=== PATIENT | male | born 1945 | race Caucasian/White ===

== ENCOUNTER → 2017-10-08 | Outpatient (CLI) | payer OTHER ==
[~2017-10-08] MED LIST: LEXA5TAB; LOVA1TAB47; PROT40TA PO; REST15CA; TEMA30CA PO; TIZA4CAP3 PO; TRAM50TA PO; TRAZ100T10 PO; TRAZ100T50
--- NOTE | 2017-10-09 09:05 | RSPPFT ---
DATE OF PROCEDURE: 10/08/17 COMMENTS: VOLUMES DYNAMIC: FVC mildly reduced; FEV1 severely reduced. STATIC: FRC, RV moderately increased, TLC normal. FLOWS: FEV1% and FEF 25-75 severely reduced. DIFFUSION: Severely reduced. FLOW VOLUME LOOP: Pattern of variable intrathoracic airways obstruction. IMPRESSION: Severe obstructive ventilatory defect with reduction in diffusion and hyperinflation consistent with emphysema. Airways resistance is increased. There is significant improvement post-bronchodilator.
== END ==
LOC: PHRSP 10:25
PROVIDERS: ATTEND Internal Medicine
DX: J44.9 Chronic obstructive pulmonary disease, unspecified (principal)
CPT/HCPCS: 94060; 94620; 94726; 94729

== ENCOUNTER 2017-10-30 14:36 | Inpatient (IN) | payer OTHER, MEDICARE ==
[2017-10-30] VITALS (7 sets, daily range): BP systolic 119–139; BP diastolic 66–76; PULSE 69–78; RESP 16–20; TEMP 97.7–97.9; O2SAT 92–96
[~2017-10-30] VITALS: Ht 182.9 cm; Wt 62.2 kg
[~2017-10-30 14:36] MED LIST changes: -PROT40TA PO; -TEMA30CA PO; -TIZA4CAP3 PO; -TRAM50TA PO; -TRAZ100T10 PO
[2017-10-30] MEDS ORDERED: PROT40TA PO (15:17)
[2017-10-30] MEDS ORDERED: TRAZ100T10 PO (15:17)
[2017-10-30] MEDS ORDERED: TRAM50TA PO (15:17)
[2017-10-30] MEDS ORDERED: TEMA30CA PO (15:17)
[2017-10-30] MEDS ORDERED: TIZA4CAP3 PO (15:17)
--- NOTE | 2017-10-30 15:28 | PD ---
HPI Chief Complaint: Pain: Acute or Chronic Time Seen by Provider: 15:12 Travel History International Travel<30 days: No Contact w/Intl Traveler<30days: No Traveled to known affect area: No History of Present Illness HPI This 72-year-old male says he has not felt well since around . He says he went to his doctor's office and got a pneumonia shot. After the shot he started feeling as though his ribs were being squeezed. He had persistent chest pain. He says the pain has now moved to his back and he has ongoing active pain as well as chest pain. He says he had a chest x-ray last Sunday at [facility] though I have not been able to find this report. He has been a smoker in the past. In 2009 he had laparoscopic removal of his esophagus. He has gone for follow-up and has been told that he is cancer free. Recently he has not had an appetite. He has had weight loss. He has pain with any movements. He has trouble getting comfortable. He is not aware of fever. He did have a CT of the thorax with contrast on September 06 which showed a pulmonary nodule mild nodular infiltrate in the posterior right lower lung most likely inflammatory PFSH Past Medical History Bipolar Disorder: Yes (BEING TX x15 YEARS) Depression: Yes (BEING TX OF DEPRESSION x15 YEARS) Cancer: Yes Diminished Hearing: No GERD: Yes Musculoskeletal: Yes (CHRONIC BACK PAIN) Immunizations Current: Yes Tetanus Vaccination: < 5 Years Influenza Vaccination: Yes Past Surgical History Appendectomy: Yes Other Surgery: Yes (PARTIAL REMOVAL OF ESOPHIGOUS/STOMACH) Social History Alcohol Use: Yes (SOCIAL) Tobacco Use: No (FORMER) Substance Use: No Allergies-Medications (Allergen,Severity, Reaction): Coded Allergies: No Known Allergies (Verified Allergy, Unknown, 10/30/17) Reported Meds & Prescriptions Reported Meds & Active Scripts Active Reported Protonix (Pantoprazole Sodium) 40 Mg Tab 40 Mg PO DAILY Trazodone (Trazodone HCl) 100 Mg Tablet 200 Mg PO HS Tizanidine (Tizanidine HCl) 4 Mg Cap 4 Mg PO HS Tramadol (Tramadol HCl) 50 Mg Tab 50 Mg PO Q6H PRN Temazepam 30 Mg Cap 30 Mg PO HS PRN Review of Systems General / Constitutional: Positive: Weight Loss, No: Fever, Chills Eyes: No: Diploplia HENT: No: Headaches, Vertigo Cardiovascular: Positive: Chest Pain or Discomfort, No: Palpitations Respiratory: No: Cough, Shortness of Breath Gastrointestinal: Positive: Loss of Appetite, No: Vomiting, Diarrhea Genitourinary: No: Frequency Musculoskeletal: No: Myalgias Skin: No Rash Neurologic: Positive: Weakness, No: Dizziness Endocrine: No: Heat Intolerance, Cold Intolerance Hematologic/Lymphatic: No: Easy Bruising Physical Exam Narrative GENERAL: Chronically ill-appearing male is quite thin SKIN: Focused skin assessment warm/dry. HEAD: Atraumatic. Normocephalic. EYES: Pupils equal and round. No scleral icterus. No injection or drainage. ENT: No nasal bleeding or discharge. Mucous membranes pink and moist. NECK: Trachea midline. No JVD. CARDIOVASCULAR: Regular rate and rhythm. No murmur appreciated. RESPIRATORY: No accessory muscle use. Clear to auscultation. Breath sounds equal bilaterally. He has bilateral chest wall tenderness GASTROINTESTINAL: Abdomen soft, non-tender, nondistended. Hepatic and splenic margins not palpable. MUSCULOSKELETAL: No obvious deformities. No clubbing. No cyanosis. No edema. He has tenderness in the low back. NEUROLOGICAL: Awake and alert. No obvious cranial nerve deficits. Motor grossly within normal limits. Normal speech. PSYCHIATRIC: Appropriate mood and affect; insight and judgment normal. Data Data Last Documented VS Vital Signs Date Time Temp Pulse Resp B/P (MAP) Pulse Ox O2 Delivery O2 Flow Rate FiO2 10/30/17 18:05 72 18 139/73 (95) 93 Room Air 10/30/17 14:59 97.7 Orders Orders Electrocardiogram (10/30/17 15:25) Complete Blood Count With Diff (10/30/17 15:25) Comprehensive Metabolic Panel (10/30/17 15:25) Prothrombin Time / Inr (Pt) (10/30/17 15:25) Act Partial Throm Time (Ptt) (10/30/17 15:25) Urinalysis - C+S If Indicated (10/30/17 15:25) Magnesium (Mg) (10/30/17 15:25) Chest, Single Ap (10/30/17 15:25) Sodium Chlor 0.9% 1000 Ml Inj (Ns 1000 M (10/30/17 15:45) Ct Thorax/ Chest W Iv Contrast (10/30/17 15:39) Ct Abd/Pel W Iv Contrast(Rout) (10/30/17 ) Ct Lumb Spine W Iv Contrast (10/30/17 ) Iohexol 350 Inj (Omnipaque 350 Inj) (10/30/17 16:48) Morphine Inj (Morphine Inj) (10/30/17 18:00) Admit Order (Ed Use Only) (10/30/17 18:42) Labs Laboratory Tests Test 10/30/17 15:30 10/30/17 16:15 White Blood Count 14.0 TH/MM3 Red Blood Count 3.65 MIL/MM3 Hemoglobin 10.2 GM/DL Hematocrit 31.1 % Mean Corpuscular Volume 85.1 FL Mean Corpuscular Hemoglobin 28.1 PG Mean Corpuscular Hemoglobin Concent 33.0 % Red Cell Distribution Width 12.8 % Platelet Count 120 TH/MM3 Mean Platelet Volume 8.6 FL Neutrophils (%) (Auto) 79.8 % Lymphocytes (%) (Auto) 11.5 % Monocytes (%) (Auto) 6.3 % Eosinophils (%) (Auto) 1.9 % Basophils (%) (Auto) 0.5 % Neutrophils # (Auto) 11.1 TH/MM3 Lymphocytes # (Auto) 1.6 TH/MM3 Monocytes # (Auto) 0.9 TH/MM3 Eosinophils # (Auto) 0.3 TH/MM3 Basophils # (Auto) 0.1 TH/MM3 CBC Comment DIFF FINAL Differential Comment Prothrombin Time 16.6 SEC Prothromb Time International Ratio 1.6 RATIO Activated Partial Thromboplast Time 30.1 SEC Blood Urea Nitrogen 12 MG/DL Creatinine 1.10 MG/DL Random Glucose 118 MG/DL Total Protein 5.6 GM/DL Albumin 2.6 GM/DL Calcium Level 8.9 MG/DL Magnesium Level 1.7 MG/DL Alkaline Phosphatase 977 U/L Aspartate Amino Transf (AST/SGOT) 67 U/L Alanine Aminotransferase (ALT/SGPT) 24 U/L Total Bilirubin 0.4 MG/DL Sodium Level 139 MEQ/L Potassium Level 3.8 MEQ/L Chloride Level 99 MEQ/L Carbon Dioxide Level 34.3 MEQ/L Anion Gap 6 MEQ/L Estimat Glomerular Filtration Rate 66 ML/MIN Urine Collection Type CLEAN CATCH Urine Color YELLOW Urine Turbidity CLEAR Urine pH 5.5 Urine Specific Leigh 1.013 Urine Protein NEG mg/dL Urine Glucose (UA) NEG mg/dL Urine Ketones NEG mg/dL Urine Occult Blood NEG Urine Nitrite NEG Urine Bilirubin NEG Urine Leukocyte Esterase NEG Urine WBC 0-2 /hpf Urine Squamous Epithelial Cells 0-5 /hpf Microscopic Urinalysis Comment CULT NOT INDICATED Urine Collection Time 16:15 [facility] Medical Decision Making Medical Screen Exam Complete: Yes Emergency Medical Condition: Yes Medical Record Reviewed: Yes Differential Diagnosis Differential includes musculoskeletal pain, recurrent esophageal carcinoma, lung cancer Narrative Course Patient has not been eating well. I have ordered lab work as well as CT scan of chest abdomen and pelvis and lumbar spine and very suspicious of metastatic disease. Disposition will be determined by oncoming physician Jaciel Saleem MD Oct 30, 2017 15:28
[2017-10-30] MEDS ORDERED: SODIUM CHLOR 0.9% 1000 ML INJ 1,000 ML IV ONE (15:45)
[2017-10-30 15:53] LABS: AUTOMATED NEUTROPHIL # 11.1 TH/MM3 (1.8-7.7); BASOPHIL # 0.1 TH/MM3 (0-0.2); BASOPHIL % 0.5 % (0.0-2.0); EOSINOPHIL # 0.3 TH/MM3 (0-0.4); EOSINOPHIL % 1.9 % (0.0-4.0); HEMATOCRIT 31.1 % (39.0-51.0); HEMOGLOBIN 10.2 GM/DL (13.0-17.0); LYMPH % 11.5 % (9.0-44.0); LYMPHOCYTE # 1.6 TH/MM3 (1.0-4.8); MEAN CELL VOLUME 85.1 FL (80.0-100.0); MEAN CORPUSCULAR HEMOGLOBIN 28.1 PG (27.0-34.0); MEAN PLATELET VOLUME 8.6 FL (7.0-11.0); MONO % 6.3 % (0.0-8.0); MONOCYTE # 0.9 TH/MM3 (0-0.9); NEUT % 79.8 % (16.0-70.0); PLATELET COUNT 120 TH/MM3 (150-450); RED BLOOD COUNT 3.65 MIL/MM3 (4.50-5.90); RED CELL DISTRIBUTION WIDTH 12.8 % (11.6-17.2)
[2017-10-30 16:04] LABS: CHLORIDE 99 MEQ/L (98-107); SODIUM (NA) 139 MEQ/L (136-145)
[2017-10-30 16:06] LABS: INTERNATIONAL NORMALIZED RATIO 1.6 RATIO; PROTHROMBIN TIME - PATIENT 16.6 SEC (9.8-11.6)
[2017-10-30 16:08] LABS: ALBUMIN 2.6 GM/DL (3.4-5.0); BICARBONATE 34.3 MEQ/L (21.0-32.0); CALCIUM 8.9 MG/DL (8.5-10.1); GLUCOSE,RANDOM 118 MG/DL (74-106); MAGNESIUM 1.7 MG/DL (1.5-2.5)
[2017-10-30 16:09] LABS: BLOOD UREA NITROGEN 12 MG/DL (7-18)
[2017-10-30 16:11] LABS: ALT (GPT) 24 U/L (12-78); AST (GOT) 67 U/L (15-37)
[2017-10-30 16:12] LABS: GLOMERULAR FILTRATION RATE 66 ML/MIN (>89)
[2017-10-30 16:13] LABS: TOTAL BILIRUBIN ADULT 0.4 MG/DL (0.2-1.0); TOTAL PROTEIN 5.6 GM/DL (6.4-8.2)
[2017-10-30 16:14] LABS: ALKALINE PHOSPHATASE 977 U/L (45-117)
[2017-10-30 16:34] LABS: BILIRUBIN, URINE NEG (NEG); BLOOD, URINE NEG (NEG); GLUCOSE,URINE NEG (NEG); KETONE, URINE NEG (NEG); NITRITE,URINE NEG (NEG); PH, URINE 5.5 (5.0-8.5); URINE LEUKOCYTE ESTERASE NEG (NEG)
[2017-10-30] MEDS ORDERED: IOHEXOL 350 MG/ML 10 ML VIAL (for RAD DIAG) IVCONTRAST ONE (16:48)
[2017-10-30 16:58] LABS: URINE COLOR YELLOW (YELLW/STRAW)
[2017-10-30 16:59] LABS: SQUAMOUS EPITHELIAL CELL URINE 0-5 /hpf (0-5); WBC, URINE 0-2 /hpf (0-5)
--- NOTE | 2017-10-30 17:08 | RADRPT ---
EXAM DATE/TIME: 10/30/2017 16:34 CORRECTION Corrected on: October 30, 2017; [facility] COMPARISON: CT ABDOMEN & PELVIS W CONTRAST, October 30, 2017, 16:34. INDICATIONS : Chest pain. Evaluate for mass. history of esophageal cancer. IV CONTRAST: 95 cc Omnipaque 350 (iohexol) IV ; Cumulative dose for multiple exams. RADIATION DOSE: 9.78 CTDIvol (mGy) ; Combined studies - Thorax/Abdomen/Pelvis MEDICAL HISTORY : Carcinoma, esophageal. Gastroesophageal reflux disease. SURGICAL HISTORY : Appendectomy. Partial removal of esophagus/stomach. ENCOUNTER: Initial ACUITY: 1 day PAIN SCALE: 6/10 LOCATION: chest TECHNIQUE: Volumetric scanning of the chest was performed. Using automated exposure control and adjustment of t he mA and/or kV according to patient size, radiation dose was kept as low as reasonably achievable to obtain optimal diagnostic quality images. DICOM format image data is available electronically for review and comparison. Follow-up recommendations for detected pulmonary nodules are based at a minimum on nodule size and pa tient risk factors according to Fleischner Society Guidelines. LUNGS: There is no consolidation or pneumothorax. The lungs are hyperinflated with underlying emphysema. The re is mild scarring. No concerning pulmonary nodule is visualized. PLEURA: There is a small left pleural effusion. MEDIASTINUM: The heart and great vessels demonstrate no acute abnormality. There is no mediastinal or hilar lymph adenopathy. Status post esophagectomy and gastric pull-through procedure. There is no visualized mass . Fluid is noted in the stomach. There is a small to moderate pericardial effusion AXILLAE: Within normal limits. No lymphadenopathy. SKELETAL: There are subtle scattered lucent lesions throughout the spine consistent with metastatic disease. Th ere is an expansile lesion volving one of the upper left thoracic pedicles. This appears to be T3. Th ere is mass effect on the left side of the thecal sac at this level. MISCELLANEOUS: There is a 1 cm low attenuation lesion in the anterior left lobe of the liver. The adrenal glands are unremarkable. CONCLUSION: 1. Osseous metastatic disease. This includes an expansile lesion involving what appears to be the lef t T3 lamina with mass effect on the left side of the thecal sac. 2. Small to moderate sized pericardial effusion. 3. Status post esophagectomy with gastric pull-through procedure. There is no visualized mass or alicia opathy. 4. Underlying emphysema and mild scarring. 5. Small left pleural effusion. 6. Low attenuation lesion in the anterior left lobe of liver which is a nonspecific finding. Please s ee abdomen CT for further details. Chente Stone MD on October 30, 2017 at 17:02 Board Certified Radiologist. This report was verified electronically. Chente Stone MD on October 30, 2017 at 17:18 Board Certified Radiologist. This report was verified electronically.
--- NOTE | 2017-10-30 17:16 | RADRPT ---
EXAM DATE/TIME: 10/30/2017 16:34 [facility] COMPARISON: CT THORAX W CONTRAST, October 30, 2017, 16:34. INDICATIONS : Evaluate for mass. History of esophageal cancer. IV CONTRAST: 95 cc Omnipaque 350 (iohexol) IV ; Cumulative dose for multiple exams. ORAL CONTRAST: No oral contrast ingested. RADIATION DOSE: 9.78 CTDIvol (mGy) ; Combined studies - Thorax/Abdomen/Pelvis MEDICAL HISTORY : Gastroesophageal reflux disease. Carcinoma, esophageal. SURGICAL HISTORY : Appendectomy. Partial removal of esophagus/stomach. ENCOUNTER: Initial ACUITY: 1 day PAIN SCALE: 6/10 LOCATION: pelvis TECHNIQUE: Volumetric scanning of the abdomen and pelvis was performed. Using automated exposure control and ad justment of the mA and/or kV according to patient size, radiation dose was kept as low as reasonably achievable to obtain optimal diagnostic quality images. DICOM format image data is available electro nically for review and comparison. FINDINGS: LOWER LUNGS: There is a small left pleural effusion. There is a small to moderate pericardial effusion as well. Po stsurgical changes are noted from the esophagectomy and gastric pull-through procedure. LIVER: Homogeneous density with a 1.2 cm low-attenuation inhomogeneous mass in the anterior left lobe of the liver. There are no other lesions identified. Gallbladder is unremarkable in appearance. There is no dilation of the biliary tree. No calcified gallstones. SPLEEN: Normal size without lesion. PANCREAS: Within normal limits. KIDNEYS: Normal in size and shape. There is no mass, stone or hydronephrosis. ADRENAL GLANDS: Within normal limits. VASCULAR: There is no aortic aneurysm. BOWEL/MESENTERY: No oral contrast was given limiting the sensitivity of the exam. Postsurgical changes are noted statu s post esophagectomy and gastric pull through procedure. The small bowel and colon demonstrate no acu te abnormality. There is no free intraperitoneal air or fluid. ABDOMINAL WALL: Within normal limits. RETROPERITONEUM: There is no lymphadenopathy. BLADDER: No wall thickening or mass. REPRODUCTIVE: Within normal limits. INGUINAL: There is no lymphadenopathy or hernia. MUSCULOSKELETAL: There are scattered subtle lucent lesions throughout the spine as well as a destructive expansile les ion involving the left L3 transverse process and pedicle. CONCLUSION: 1. Osseous metastatic disease. There is an expansile destructive lesion involving the left L3 transve rse process process and pedicle. 2. Postsurgical changes status post esophagectomy and gastric pull-through procedure. 3. 1.2 cm low-attenuation lesion in the anterior left lobe of the liver which is nonspecific. The dif ferential diagnosis includes both metastatic disease and benign lesions. 4. Small to moderate pericardial effusion again noted. 5. Small left pleural effusion again noted. Chente Stone MD on October 30, 2017 at 17:09 Board Certified Radiologist. This report was verified electronically.
--- NOTE | 2017-10-30 17:57 | RADRPT ---
EXAM DATE/TIME: 10/30/2017 16:34 [facility] COMPARISON: No previous studies available for comparison. INDICATIONS : Lower back pain. History of esophageal cancer. IV CONTRAST: 95 Omnipaque 350 (iohexol) IV ; Cumulative dose for multiple exams. RADIATION DOSE: ; Reconstructed from previous dataset, no dose MEDICAL HISTORY : Carcinoma, esophageal. Gastroesophageal reflux disease. SURGICAL HISTORY : Appendectomy. Partial removal of esophagus/stomach. ENCOUNTER: Initial ACUITY: 1 day PAIN SCALE: 6/10 LOCATION: spine TECHNIQUE: Volumetric scanning of the lumbar spine was performed. Multiplanar reconstructions in the sagittal, coronal and oblique axial planes were performed. Using automated exposure control and adjustment of the mA and/or kV according to patient size, radiation dose was kept as low as reasonably achievable t o obtain optimal diagnostic quality images. DICOM format image data is available electronically for review and comparison. FINDINGS: Examination is abnormal. There are diffuse lytic bony metastases throughout the spine and visualized posterior pelvis. Most notably, there is a destructive lytic lesion involving the right L3 hemiverteb ral body with associated compression fractures of the inferior and superior endplates. There is limit ed posterior cortical disruption but no evidence for gross epidural involvement. At the same level, t here is a large destructive soft tissue mass involving the left L3 pedicle and transverse process phoebe suring 3.8 x 2.8 cm. Is also mild compression deformity involving the superior endplate of L1 vertebr al body. L1 appears diffusely permeative without a dominant mass. Remaining vertebral body heights ar e intact. There is also a soft tissue mass involving the left T12 lamina which appears to extend into the posterior epidural space. There is a large 3.2 x 2.6 cm mass in the right sacrum which involves the right S1 neural foramina. Sagittal alignment is maintained. The bony central canal is otherwise g rossly patent. CONCLUSION: 1. Diffuse osseous metastatic disease with pathologic compression fractures at L1 and L3 vertebral radha dies. There is limited posterior cortical destruction at L3 without gross epidural involvement. 2. Soft tissue mass in the left T12 lamina appears to extend into the posterior epidural space. 3. Soft tissue mass in the right sacrum involves the right S1 neural foramina. 4. Consider MRI examination if patient has radicular symptoms for better evaluation of epidural invol vement. 5. Patient may be a candidate for RF ablation and cement augmentation at L1 and L3 vertebral bodies a s long as patient does not have any focal neurologic symptoms at these levels. If so, consider neuros urgical consultation. Genaro Page MD on October 30, 2017 at 17:28 Board Certified Radiologist. This report was verified electronically.
[2017-10-30] MEDS ORDERED: MORPHINE SULFATE 2 MG/ML INJ IV PUSH ONE ×2 (18:00→20:00)
--- NOTE | 2017-10-30 18:29 | PD ---
Data Data Last Documented VS Vital Signs Date Time Temp Pulse Resp B/P (MAP) Pulse Ox O2 Delivery O2 Flow Rate FiO2 10/30/17 18:05 72 18 139/73 (95) 93 Room Air 10/30/17 14:59 97.7 Orders Orders Electrocardiogram (10/30/17 15:25) Complete Blood Count With Diff (10/30/17 15:25) Comprehensive Metabolic Panel (10/30/17 15:25) Prothrombin Time / Inr (Pt) (10/30/17 15:25) Act Partial Throm Time (Ptt) (10/30/17 15:25) Urinalysis - C+S If Indicated (10/30/17 15:25) Magnesium (Mg) (10/30/17 15:25) Chest, Single Ap (10/30/17 15:25) Sodium Chlor 0.9% 1000 Ml Inj (Ns 1000 M (10/30/17 15:45) Ct Thorax/ Chest W Iv Contrast (10/30/17 15:39) Ct Abd/Pel W Iv Contrast(Rout) (10/30/17 ) Ct Lumb Spine W Iv Contrast (10/30/17 ) Iohexol 350 Inj (Omnipaque 350 Inj) (10/30/17 16:48) Morphine Inj (Morphine Inj) (10/30/17 18:00) Labs Laboratory Tests Test 10/30/17 15:30 10/30/17 16:15 White Blood Count 14.0 TH/MM3 Red Blood Count 3.65 MIL/MM3 Hemoglobin 10.2 GM/DL Hematocrit 31.1 % Mean Corpuscular Volume 85.1 FL Mean Corpuscular Hemoglobin 28.1 PG Mean Corpuscular Hemoglobin Concent 33.0 % Red Cell Distribution Width 12.8 % Platelet Count 120 TH/MM3 Mean Platelet Volume 8.6 FL Neutrophils (%) (Auto) 79.8 % Lymphocytes (%) (Auto) 11.5 % Monocytes (%) (Auto) 6.3 % Eosinophils (%) (Auto) 1.9 % Basophils (%) (Auto) 0.5 % Neutrophils # (Auto) 11.1 TH/MM3 Lymphocytes # (Auto) 1.6 TH/MM3 Monocytes # (Auto) 0.9 TH/MM3 Eosinophils # (Auto) 0.3 TH/MM3 Basophils # (Auto) 0.1 TH/MM3 CBC Comment DIFF FINAL Differential Comment Prothrombin Time 16.6 SEC Prothromb Time International Ratio 1.6 RATIO Activated Partial Thromboplast Time 30.1 SEC Blood Urea Nitrogen 12 MG/DL Creatinine 1.10 MG/DL Random Glucose 118 MG/DL Total Protein 5.6 GM/DL Albumin 2.6 GM/DL Calcium Level 8.9 MG/DL Magnesium Level 1.7 MG/DL Alkaline Phosphatase 977 U/L Aspartate Amino Transf (AST/SGOT) 67 U/L Alanine Aminotransferase (ALT/SGPT) 24 U/L Total Bilirubin 0.4 MG/DL Sodium Level 139 MEQ/L Potassium Level 3.8 MEQ/L Chloride Level 99 MEQ/L Carbon Dioxide Level 34.3 MEQ/L Anion Gap 6 MEQ/L Estimat Glomerular Filtration Rate 66 ML/MIN Urine Collection Type CLEAN CATCH Urine Color YELLOW Urine Turbidity CLEAR Urine pH 5.5 Urine Specific Mallory 1.013 Urine Protein NEG mg/dL Urine Glucose (UA) NEG mg/dL Urine Ketones NEG mg/dL Urine Occult Blood NEG Urine Nitrite NEG Urine Bilirubin NEG Urine Leukocyte Esterase NEG Urine WBC 0-2 /hpf Urine Squamous Epithelial Cells 0-5 /hpf Microscopic Urinalysis Comment CULT NOT INDICATED Urine Collection Time 16:15 [facility] Supervised Visit with ADRIAN: No Narrative Course The patient was initially evaluated by the previous provider and signed out to me at the beginning of my shift pending labs, imaging studies, and disposition. See his note for further details. Briefly this is a 72-year-old male with history of esophageal cancer status post resection at [facility] several years ago, follows with oncologist Dr. Waller, here for evaluation of severe lower back pain, pain across his anterior chest, poor appetite, and weight loss. Symptoms have been going on for over 1 month. Previous provider was concern for possible metastatic disease. CBC shows WBC 14, hemoglobin 10.2, hematocrit 31.1, platelets 120. CMP is remarkable for alkaline phosphatase 977. CT of the chest, abdomen pelvis , and lumbar spine show metastatic disease to the osseous structures with pathologic compression fractures at L1 and L3, mild to moderate pericardial effusion, mild right pleural effusion. Patient and the patient's were made aware of all findings and provided copies of the CT reports. Case was discussed with on-call neurosurgical attending Dr. Iraheta who reports that based on CT findings the patient may not require emergent kyphoplasty and therefore can be further worked up down here in [place]. Case discussed with hospitalist Dr. Morrissey who will admit the patient to his service. Diagnosis Primary Impression: Metastatic disease Additional Impressions: Pathologic lumbar vertebral fracture Qualified Codes: M84.48XA - Pathological fracture, other site, initial encounter for fracture Intractable low back pain Admitting Information Admitting Physician Requests: Admit Bruce Fontenot MD Oct 30, 2017 18:29
--- NOTE | 2017-10-30 18:47 | HHI.HP ---
[facility] Max Gandhi M.D. Admission Diagnosis metastatic disease, pathologic lumbar vertebral fractures Diagnoses: Chief Complaint: Back pain Travel History International Travel<30 Days: No Contact w/Intl Traveler <30 Da: No Traveled to Known Affected Are: No History of Present Illness 72-year-old white male being admitted for compression fractures suspected secondary to metastatic disease. Patient was in his usual state of health until about 2 months ago when he began experiencing a substantial increase in his low back pain. He would go to his primary care doctor and undergo some medication treatments which provided little to no avail. He has noticed some increased urinary straining since then and also reports having decreased bowel movements which he attributes to the new pain medication that he was being prescribed. He does report having a decreased appetite and feeling weaker all over. He states that his back pain worsens with positioning and ambulation. Sometimes stooping forward helps. He denies any nausea vomiting or diarrhea but he does report having about 5 pound decrease over the last 2 months. He decided to come to the emergency department because he felt his symptoms are not getting any better with outpt treatment. ER doc d/w NICK who recommended MRI of entire spine for now. CT of spine showing suspicious mass at T 12 and compressions fractures at L1 and L3. Review of Systems Except as stated in HPI: all other systems reviewed are Neg Past Family Social History Past Medical History Esophageal cancer Past Surgical History Esophageal surgery for cancer Allergies: Coded Allergies: No Known Allergies (Verified Allergy, Unknown, 10/30/17) Family History Father had esophageal cancer Social History History of smoking Physical Exam Vital Signs Vital Signs Date Time Temp Pulse Resp B/P (MAP) Pulse Ox O2 Delivery O2 Flow Rate FiO2 10/30/17 18:05 72 18 139/73 (95) 93 Room Air 10/30/17 14:59 97.7 78 16 130/66 (87) 92 Physical Exam VS: afebrile GENERAL: Elderly white male, well-nourished, lying in bed, is in no acute distress initially but begins having what appears to be some muscle spasms of his back at which point he'll becomes tearful from the pain SKIN: Warm and dry. EYES: No scleral icterus. No injection or drainage. ENT: No nasal bleeding or discharge. Mucous membranes pink and moist. CARDIOVASCULAR: Regular rate and rhythm. no murmurs RESPIRATORY: No accessory muscle use. Clear to auscultation. Breath sounds equal bilaterally. GASTROINTESTINAL: Abdomen soft, non-tender, nondistended. Extremities: No clubbing, cyanosis, or edema. No obvious deformities. MUSCULOSKELETAL: 5/5 strength in upper and lower extremities proximally; however patient has limits his straight leg range of motion to about 45 passively bilaterally; adequate muscle bulk and tone for age and habitus. Has bilateral flank tenderness to palpation. NEUROLOGICAL: Awake and alert. No obvious cranial nerve deficits. No facial droop nor slurred speech noted. PSYCHIATRIC: Appropriate mood and affect; insight and judgment normal. Laboratory Laboratory Tests Test 10/30/17 15:30 10/30/17 16:15 White Blood Count 14.0 Red Blood Count 3.65 Hemoglobin 10.2 Hematocrit 31.1 Mean Corpuscular Volume 85.1 Mean Corpuscular Hemoglobin 28.1 Mean Corpuscular Hemoglobin Concent 33.0 Red Cell Distribution Width 12.8 Platelet Count 120 Mean Platelet Volume 8.6 Neutrophils (%) (Auto) 79.8 Lymphocytes (%) (Auto) 11.5 Monocytes (%) (Auto) 6.3 Eosinophils (%) (Auto) 1.9 Basophils (%) (Auto) 0.5 Neutrophils # (Auto) 11.1 Lymphocytes # (Auto) 1.6 Monocytes # (Auto) 0.9 Eosinophils # (Auto) 0.3 Basophils # (Auto) 0.1 CBC Comment DIFF FINAL Differential Comment Prothrombin Time 16.6 Prothromb Time International Ratio 1.6 Activated Partial Thromboplast Time 30.1 Blood Urea Nitrogen 12 Creatinine 1.10 Random Glucose 118 Total Protein 5.6 Albumin 2.6 Calcium Level 8.9 Magnesium Level 1.7 Alkaline Phosphatase 977 Aspartate Amino Transf (AST/SGOT) 67 Alanine Aminotransferase (ALT/SGPT) 24 Total Bilirubin 0.4 Sodium Level 139 Potassium Level 3.8 Chloride Level 99 Carbon Dioxide Level 34.3 Anion Gap 6 Estimat Glomerular Filtration Rate 66 Urine Collection Type CLEAN CATCH Urine Color YELLOW Urine Turbidity CLEAR Urine pH 5.5 Urine Specific [place] 1.013 Urine Protein NEG Urine Glucose (UA) NEG Urine Ketones NEG Urine Occult Blood NEG Urine Nitrite NEG Urine Bilirubin NEG Urine Leukocyte Esterase NEG Urine WBC 0-2 Urine Squamous Epithelial Cells 0-5 Microscopic Urinalysis Comment CULT NOT INDICATED Urine Collection Time 16:15 Result Diagram: 10/30/17 1530 10/30/17 1530 Imaging Last Impressions Chest CT 10/30/17 1539 Signed Impressions: Service Date/Time: Monday, October 30, 2017 16:34 - CONCLUSION: 1. Osseous metastatic disease. This includes an expansile lesion involving what appears to be the left T3 lamina with mass effect on the left side of the thecal sac. 2. Small to moderate sized pericardial effusion. 3. Status post esophagectomy with gastric pull-through procedure. There is no visualized mass or adenopathy. 4. Underlying emphysema and mild scarring. 5. Small left pleural effusion. 6. Low attenuation lesion in the anterior left lobe of liver which is a nonspecific finding. Please see abdomen CT for further details. Chente Stone MD Lumbar Spine CT 10/30/17 0000 Signed Impressions: Service Date/Time: Monday, October 30, 2017 16:34 - CONCLUSION: 1. Diffuse osseous metastatic disease with pathologic compression fractures at L1 and L3 vertebral bodies. There is limited posterior cortical destruction at L3 without gross epidural involvement. 2. Soft tissue mass in the left T12 lamina appears to extend into the posterior epidural space. 3. Soft tissue mass in the right sacrum involves the right S1 neural foramina. 4. Consider MRI examination if patient has radicular symptoms for better evaluation of epidural involvement. 5. Patient may be a candidate for RF ablation and cement augmentation at L1 and L3 vertebral bodies as long as patient does not have any focal neurologic symptoms at these levels. If so, consider neurosurgical consultation. Genaro Page MD Abdomen/Pelvis CT 10/30/17 0000 Signed Impressions: Service Date/Time: Monday, October 30, 2017 16:34 - CONCLUSION: 1. Osseous metastatic disease. There is an expansile destructive lesion involving the left L3 transverse process process and pedicle. 2. Postsurgical changes status post esophagectomy and gastric pull-through procedure. 3. 1.2 cm low-attenuation lesion in the anterior left lobe of the liver which is nonspecific. The differential diagnosis includes both metastatic disease and benign lesions. 4. Small to moderate pericardial effusion again noted. 5. Small left pleural effusion again noted. MD Alesha Tam VTE Risk Assessment Caprini VTE Risk Assessment: Mod/High Risk (score >= 2) Caprini Risk Assessment Model Point Value = 1 Point Value = 2 Point Value = 3 Point Value = 5 Age 41-60 Minor surgery BMI > 25 kg/m2 Swollen legs Varicose veins or History of unexplained or recurrent spontaneous Oral contraceptives or hormone replacement Sepsis (< 1 month) Serious lung disease, including pneumonia (< 1 month) Abnormal pulmonary function Acute myocardial infarction Congestive heart failure (< 1 month) History of inflammatory bowel disease Medical patient at bed rest Age 61-74 Arthroscopic surgery Major open surgery (> 45 min) Laparoscopic surgery (> 45 min) Malignancy Confined to bed (> 72 hours) Immobilizing plaster cast Central venous access Age >= 75 History of VTE Family history of VTE Factor V Leiden Prothrombin [id number] Lupus anticoagulant Anticardiolipin antibodies Elevated serum homocysteine Heparin-induced thrombocytopenia Other congenital or acquired thrombophilia Stroke (< 1 month) Elective arthroplasty Hip, pelvis, or leg fracture Acute spinal cord injury (< 1 month) Prophylaxis Regimen Total Risk Factor Score Risk Level Prophylaxis Regimen 0-1 Low Early ambulation 2 Moderate Order ONE of the following: *Sequential Compression Device (SCD) *Heparin 5000 units SQ BID 3-4 Higher Order ONE of the following medications: *Heparin 5000 units SQ TID *Enoxaparin/Lovenox 40 mg SQ daily (WT < 150 kg, CrCl > 30 mL/min) *Enoxaparin/Lovenox 30 mg SQ daily (WT < 150 kg, CrCl > 10-29 mL/min) *Enoxaparin/Lovenox 30 mg SQ BID (WT < 150 kg, CrCl > 30 mL/min) AND/OR *Sequential Compression Device (SCD) 5 or more Highest Order ONE of the following medications: *Heparin 5000 units SQ TID (Preferred with Epidurals) *Enoxaparin/Lovenox 40 mg SQ daily (WT < 150 kg, CrCl > 30 mL/min) *Enoxaparin/Lovenox 30 mg SQ daily (WT < 150 kg, CrCl > 10-29 mL/min) *Enoxaparin/Lovenox 30 mg SQ BID (WT < 150 kg, CrCl > 30 mL/min) AND *Sequential Compression Device (SCD) Assessment and Plan Assessment and Plan Intractable back pain - Suspect metastatic disease to the spine causing compression fractures. - Discussed case with emergency room doctor who discussed case with neurosurgery , will obtain patton-spinal MRI w/ and w/o contrast - Consulting oncology and NSG - IV morphine as needed for pain, monitor respiratory status Pericardial effusion - Asymptomatic at this time, likely secondary to metastatic disease Pleural effusion - Asymptomatic at this time, likely secondary to metastatic disease GERD - Resume home Protonix Insomnia - Resume home temazepam and trazodone Although patient is a candidate for prophylactic pharmacological anticoagulant, I will proceed only with SCDs given that he has compression fractures with possible intervention within the next 24 hours. Physician Certification 2 Midnight Certification Type: Admission for Inpatient Services Order for Inpatient Services The services are ordered in accordance with Medicare regulations or non- Medicare payer requirements, as applicable. In the case of services not specified as inpatient-only, they are appropriately provided as inpatient services in accordance with the 2-midnight benchmark. Estimated LOS (days): 3 3 days is the estimated time the patient will need to remain in the hospital, assuming treatment plan goals are met and no additional complications. Post-Hospital Plan: Not yet determined Rolf Morrissey MD Oct 30, 2017 18:47
[2017-10-30] MEDS ORDERED: NALOXONE HCL 0.4 MG/ML AMP IV PUSH PRN (19:00)
[2017-10-30] MEDS ORDERED: BISACODYL 10 MG SUPP RECTAL PRN (19:00)
[2017-10-30] MEDS ORDERED: ACETAMINOPHEN 325 MG TAB PO PRN (19:00)
[2017-10-30] MEDS ORDERED: ONDANSETRON HCL 4 MG/2 ML VIAL IVP PRN (19:00)
[2017-10-30] MEDS: DOCUSATE SODIUM 50 MG/SENNA 8.6 MG TAB PO SCH (21:25)
[2017-10-30] MEDS: traZODone HCL 100 MG TAB PO SCH (21:25)
[2017-10-30] MEDS ORDERED: MORPHINE SULFATE 4 MG/ML INJ IV PUSH PRN (22:00)
[2017-10-30] MEDS ORDERED: TEMAZEPAM 15 MG CAP PO PRN (22:15)
[2017-10-30] MEDS: SODIUM CHLORIDE 0.9% FLUSH 10 ML FLUSH IV FLUSH SCH (22:58)
[2017-10-31] VITALS (8 sets, daily range): BP systolic 84–126; BP diastolic 44–61; PULSE 64–79; RESP 17–24; TEMP 98.2–98.7; O2SAT 89–100
[2017-10-31] MEDS ORDERED: SODIUM CHLOR 0.9% 250 ML INJ 250 ML IV ONE (00:45)
[2017-10-31] MEDS: SODIUM CHLORIDE 0.9% FLUSH 10 ML FLUSH IV FLUSH PRN (04:59)
[2017-10-31] MEDS: MORPHINE SULFATE 2 MG/ML INJ IV PUSH PRN ×4 (04:59→21:25)
[2017-10-31 05:28] LABS: AUTOMATED NEUTROPHIL # 9.3 TH/MM3 (1.8-7.7); BASOPHIL # 0.1 TH/MM3 (0-0.2); BASOPHIL % 0.6 % (0.0-2.0); EOSINOPHIL # 0.4 TH/MM3 (0-0.4); EOSINOPHIL % 3.3 % (0.0-4.0); HEMOGLOBIN 9.2 GM/DL (13.0-17.0); LYMPH % 11.9 % (9.0-44.0); LYMPHOCYTE # 1.4 TH/MM3 (1.0-4.8); MEAN CELL VOLUME 84.6 FL (80.0-100.0); MEAN CORPUSCULAR HEMOGLOBIN 27.8 PG (27.0-34.0); MEAN CORPUSCULAR HGB CONC 32.8 % (32.0-36.0); MEAN PLATELET VOLUME 9.2 FL (7.0-11.0); MONO % 7.8 % (0.0-8.0); MONOCYTE # 0.9 TH/MM3 (0-0.9); NEUT % 76.4 % (16.0-70.0); PLATELET COUNT 111 TH/MM3 (150-450); RED BLOOD COUNT 3.31 MIL/MM3 (4.50-5.90); RED CELL DISTRIBUTION WIDTH 12.9 % (11.6-17.2); WHITE BLOOD COUNT 12.1 TH/MM3 (4.0-11.0)
[2017-10-31 05:44] LABS: BICARBONATE 32.2 MEQ/L (21.0-32.0); CALCIUM 8.4 MG/DL (8.5-10.1)
[2017-10-31 05:48] LABS: CREATININE 0.9 MG/DL (0.60-1.30)
[2017-10-31 05:52] LABS: INTERNATIONAL NORMALIZED RATIO 1.5 RATIO; PROTHROMBIN TIME - PATIENT 15.6 SEC (9.8-11.6)
--- NOTE | 2017-10-31 08:22 | RADRPT ---
EXAM DATE/TIME: 10/30/2017 17:25 [facility] COMPARISON: No previous studies available for comparison. INDICATIONS : Chest pain. Loss of appetite. MEDICAL HISTORY : Gastroesophageal reflux disease. Carcinoma, esophageal. SURGICAL HISTORY : Appendectomy. Partial removal of esophagus/stomach. ENCOUNTER: Initial ACUITY: 1 day PAIN SCORE: 0/10 LOCATION: Bilateral chest FINDINGS: A single view of the chest demonstrates the lungs to be symmetrically aerated without evidence of mas s, infiltrate or effusion. The cardiomediastinal contours are unremarkable. There is a mild scoliosi s of the thoracic and lumbar spine with mild degenerative change. Surgical clips in the upper abdomen near the gastroesophageal junction. CONCLUSION: No acute cardiopulmonary disease. Chente Stone MD on October 30, 2017 at 17:39 Board Certified Radiologist. This report was verified electronically.
[2017-10-31] MEDS: DOCUSATE SODIUM 50 MG/SENNA 8.6 MG TAB PO SCH ×2 (08:28→21:23)
[2017-10-31] MEDS: PANTOPRAZOLE SOD 40 MG DELAYED RELEASE TAB PO SCH (08:29)
[2017-10-31] MEDS: SODIUM CHLORIDE 0.9% FLUSH 10 ML FLUSH IV FLUSH SCH ×2 (08:30→21:24)
[2017-10-31] MEDS ORDERED: GADODIAMIDE PF 287 MG/ML 5 ML VIAL (for RAD MRI) IV PUSH ONE (11:30)
--- NOTE | 2017-10-31 12:25 | RADRPT ---
EXAM DATE/TIME: 10/31/2017 10:02 [facility] COMPARISON: No previous studies available for comparison. INDICATIONS : Metastatic disease. CONTRAST: 12 cc Omniscan (gadodiamide) IV MEDICAL HISTORY : Carcinoma, esophageal. SURGICAL HISTORY : Appendectomy. Esophagus ca surgery. ENCOUNTER: Initial ACUITY: 4-6 days PAIN SCORE: 4/10 LOCATION: neck TECHNIQUE: Multiplanar, multisequence MRI examination of the cervical spine was performed. FINDINGS: There is somewhat diffuse marrow heterogeneity and marrow replacement at every level of the cervical spine characteristic of metastatic bone disease. There is no associated soft tissue mass extending in to the cervical canal. There is no canal stenosis but no cord impingement. No discrete disc protrusio n. CONCLUSION: 1. Widespread patchy marrow replacement characteristic of bony metastatic disease without evidence of focal pathologic fracture or soft tissue extension into the spinal canal. The metastatic disease luciano s not enhance significantly post contrast. No canal stenosis. Davey Prince MD on October 31, 2017 at 12:15 Board Certified Radiologist. This report was verified electronically.
--- NOTE | 2017-10-31 12:52 | RADRPT ---
EXAM DATE/TIME: 10/31/2017 10:02 [facility] COMPARISON: No previous studies available for comparison. INDICATIONS : Metastatic disease. CONTRAST: 12 cc Omniscan (gadodiamide) IV MEDICAL HISTORY : Carcinoma, esophageal. SURGICAL HISTORY : Appendectomy. Esophageal ca surgery. ENCOUNTER: Initial ACUITY: 3 day PAIN SCORE: 5/10 LOCATION: back TECHNIQUE: Multiplanar multisequence MRI of the lumbar spine was performed with and without contrast. FINDINGS: There is widespread metastatic disease in the lumbar spine with extensive marrow replacement. There i s some enhancement within the marrow of L3, otherwise marrow enhancement is mild. There are pathologi c compression fractures at the superior plate of L1 and at L3. There is bony destruction in marrow infiltration at posterior elements of T12 with minimal impression on the posterior lateral thecal sac on the left side. There is also bony destruction involving the l eft L3 pedicle and transverse process with soft tissue mass without significant extension into the [place] mbar spinal canal. There is a small soft tissue extension into the left lateral recess at L3. CONCLUSION: 1. Widespread bony metastatic disease with mild compression fractures of L1 and L3. 2. Metastatic disease at T12 posteriorly extending slightly into the posterior lateral canal at the t horacolumbar junction. At L3 left-sided pedicle and transverse process metastatic disease extends sli ghtly into the left lateral recess. Overall there is no significant central canal stenosis. 3. There is also bony metastatic disease involving the upper sacrum and pelvis. Davey Prince MD on October 31, 2017 at 12:43 Board Certified Radiologist. This report was verified electronically.
[2017-10-31] MEDS ORDERED: SODIUM CHLOR 0.9% 1000 ML INJ 1,000 ML IV ONE (13:00)
--- NOTE | 2017-10-31 13:00 | HHI.PR ---
Subjective Remarks Nursing denies any deterioration since last night. Patient himself says when he gets his coughing spells that's when his pain gets really bad in his back. He says he still can't cough up phlegm. Objective Vital Signs Date Time Temp Pulse Resp B/P (MAP) Pulse Ox O2 Delivery O2 Flow Rate FiO2 10/31/17 12:05 98.2 79 20 110/61 (77) 89 10/31/17 08:00 98.5 74 18 109/50 (69) 95 10/31/17 08:00 96 Nasal Cannula 2.00 10/31/17 05:59 20 10/31/17 04:00 98.4 68 20 101/56 (71) 94 10/31/17 00:00 98.4 64 21 84/44 (57) 94 10/30/17 23:05 95 Nasal Cannula 2.00 10/30/17 23:00 69 10/30/17 22:18 97.9 72 20 119/76 (90) 96 10/30/17 21:59 20 10/30/17 20:37 93 21 10/30/17 20:00 70 20 133/70 (91) 96 10/30/17 19:00 20 10/30/17 18:05 72 18 139/73 (95) 93 Room Air 10/30/17 14:59 97.7 78 16 130/66 (87) 92 I/O 10/30/17 10/30/17 10/30/17 10/31/17 10/31/17 10/31/17 07:00 15:00 23:00 07:00 15:00 23:00 Intake Total 1000 ml 240 ml Output Total 1050 ml 550 ml Balance -50 ml -310 ml Intake Oral 240 ml IV Total 1000 ml Output Urine Total 1050 ml 550 ml # Voids 4 2 # Bowel Movements 0 Result Diagram: 10/31/1742410/31/17424 Objective Remarks Lung sounds are clear, unlabored breathing Lying awake in bed and still in bed A/P Assessment and Plan Intractable back pain - better w/ morphine - Suspect metastatic disease to the spine causing compression fractures. - NSG may have surgical option available; widespread metastatic disease throughout the entire spine - Consulting oncology; Case d/w NSG. Kyphoplasty would be for pain control. Will transfer patient to [facility]. Case d/w oncology, steroids for edema. - IV morphine as needed for pain, monitor respiratory status. Pericardial effusion - Asymptomatic at this time, likely secondary to metastatic disease Pleural effusion - Asymptomatic at this time, likely secondary to metastatic disease GERD - home Protonix Insomnia - home temazepam and trazodone SCDs. NPO until further notice from NSG. Rolf Morrissey MD Oct 31, 2017 13:00
--- NOTE | 2017-10-31 13:10 | RADRPT ---
EXAM DATE/TIME: 10/31/2017 10:02 [facility] COMPARISON: No previous studies available for comparison. INDICATIONS : Metastatic disease. CONTRAST: 12 cc Omniscan (gadodiamide) IV MEDICAL HISTORY : Carcinoma, esophageal. SURGICAL HISTORY : Appendectomy. Esophageal ca surgery. ENCOUNTER: Initial ACUITY: 3 day PAIN SCORE: 4/10 LOCATION: back TECHNIQUE: Multiplanar multisequence MRI of the thoracic spine was performed. FINDINGS: There is widespread bony metastatic disease in the thoracic spine. No pathologic compression fracture is identified. There is metastatic disease to the posterior elements of T3 and T12 on the left side minimal impressi ons on the left posterolateral thoracic canal. There is no significant cord compression at this time. No cord edema. Metastatic disease enhances mildly postcontrast. No discrete disc protrusions. Normal alignment. Schmorl's nodes lower thoracic spine. CONCLUSION: 1. Widespread bony metastatic disease in the thoracic spine. Metastatic disease to the posterior levelock ents of T3 and T12 on the left side results in mild impression on the left posterior lateral thoracic canal without significant cord compression. No pathologic fracture. Davey Prince MD on October 31, 2017 at 13:05 Board Certified Radiologist. This report was verified electronically.
[2017-10-31] MEDS: SODIUM CHLOR 0.9% 1000 ML INJ 1,000 ML IV SCH ×2 (14:13→23:39)
[2017-10-31] MEDS: RESP: ACETYLCYSTEINE 10% 30 ML NEB NEB SCH ×2 (14:55→20:09)
[2017-10-31] MEDS: RESP: ALBUTEROL 2.5 MG/IPRATROPIUM 0.5 MG NEB (SCH) NEB ×2 (14:55→20:09)
[2017-10-31] MEDS: DEXAMETHASONE SOD PHOS 4 MG/ML VIAL IV PUSH SCH ×2 (19:01→23:38)
[2017-10-31] MEDS: traZODone HCL 100 MG TAB PO SCH (21:24)
[2017-10-31] MEDS ORDERED: CHLORHEXIDINE GLUCONATE 2 % 1 PACK (2 CLOTHS)(extra cloths) TOPICAL PRN (22:00)
--- NOTE | 2017-10-31 22:05 | EKG ---
Date Performed: 10/30/2017 Time Performed: 15:34:17 PTAGE: 72 years EKG: Sinus rhythm WITH OCCASIONAL SUPRAVENTRICULAR PREMATURE COMPLEXES BORDERLINE ECG PREVIOUS TRACING : 10/26/2006 02.14 Compared to the previous tracing rate faster DOCTOR: Scar Mercer Interpretating Date/Time 10/31/2017 22:04:01
--- NOTE | 2017-10-31 23:03 | MB ---
cc: Sarah GLILETTE M.D., ABDUL J. M.D. DATE OF CONSULTATION: 10/31/2017 REASON FOR CONSULTATION: Consult requested by hospitalist Dr. Morrissey, for evaluation of metastatic disease to the bone with unknown primary at this time. HISTORY OF PRESENT ILLNESS Glen is a pleasant 72-year-old male. He has a history of esophageal cancer which was diagnosed in 2009. He stated that he underwent surgery at [facility] in [place]. He did not require any radiation or chemotherapy. He went into remission. The patient was in his usual status of health up until two months ago when he started having back pain. He states that he was babying it and he thought it was maybe due to the arthritis. The pain was not relieved with [id number] medications. He finally went to see his primary physician, Dr. Gillette, last month. A chest x-ray was ordered which was reported to be negative. The patient's pain continued to get worse. His is a retired registered nurse. She advised him to come to the emergency room for further evaluation for the severe back pain. The patient came into the emergency room yesterday with complaint of severe back pain. He states that when he coughs and moves it hurts in the back. He denies any weakness or numbness, or tingling of both lower legs. He does not have any urinary incontinence or stool incontinence. He does not appear to have any symptoms of cord compression at this time. The patient has been having problem with the urination lately. He states that his last PSA was five years ago. Those records are not available. IMAGING STUDIES: He underwent CT scan of the lumbar spine which showed diffuse osseous metastatic disease with pathological compression fracture at L1 and L3 vertebral bodies. There is limited posterior cortical destruction at L3 without gross epidural involvement. There is a soft tissue mass in the left T12 lamina appears to extend into the posterior epidural space. There is a soft tissue mass in the right sacrum involving the right S1 neural foramina. He had a CT scan of the abdomen and pelvis which showed osseous metastatic disease. There is a 1.2 cm low attenuation lesion in the anterior left lobe of the liver which is nonspecific. The CT scan of the chest showed osseous metastatic disease with expansile lesion involving T3 with mass effect on the left side of the thecal sac. There is a small to moderate-sized pericardial effusion noted. Status post esophagectomy with gastric pull-through procedure. There is no visualized mass or adenopathy noted. There is underlying emphysema noted. Neurosurgery was consulted from the emergency room. They have recommended to get an MRI of the whole spine. The patient had an MRI today which showed widespread patchy marrow replacement, characteristic of bony metastatic disease without evidence of focal pathological fracture or soft tissue extension into the spinal canal and the cervical spine. The MRI of the thoracic spine showed widespread bony metastatic disease in the thoracic spine, metastatic disease to the posterior elements of T3 and T12 on the left side results in mild compression, on the left posterior lateral thoracic canal without significant cord compression. No pathological fracture noted. However, the MRI of the lumbar spine showed widespread bony metastatic disease with mild compression fracture of L1 and L3. There is metastatic disease at T12 extending slightly into the posterior lateral canal at the thoracolumbar junction. L3 left-sided pedicle and transverse process metastatic disease extends slightly into the left lateral recess. There is no spinal stenosis noted. I have been asked to see the patient for further evaluation. The patient has been complaining of severe back pain. He also is complaining of chest pain and cough with mucus. He denies any fever. His appetite is poor. He denies any weight loss. The rest of the review of systems is negative. PAST MEDICAL HISTORY, PAST SURGICAL HISTORY 1. Esophageal cancer which was diagnosed in 2009 and underwent surgery. 2. Resection of the distal esophagus with gastric pull-through. 3. Bipolar disorder. 4. Depression. 5. Gastroesophageal reflux disease. 6. Appendectomy. MEDICATIONS PRIOR TO ADMISSION 1. Protonix. 2. Trazodone. 3. Tizanidine. 4. Tramadol. 5. Temazepam. FAMILY HISTORY Family history is significant for esophageal cancer. SOCIAL HISTORY The patient used to smoke cigarettes, quit a long time ago. He drinks alcohol socially. ALLERGIES None known. PHYSICAL EXAMINATION The patient is a well-developed, chronically ill-appearing white male in no apparent distress. VITAL SIGNS: Temperature 98.2, heart rate 79, blood pressure 110/61, O2 saturation 89% on 2 liters nasal cannula. HEENT: PERRLA, EOMI, anicteric. No oral lesions noted. Neck: No lymphadenopathy noted. Lungs: Lungs are clear. No wheezing, rhonchi or rales. Heart: Heart is regular rate and rhythm. Abdomen: Soft, nontender. Extremities: No pedal edema. Neurology: Awake, alert, oriented times three. Skin: No significant lesions are noted. ASSESSMENT 1. History of esophageal cancer underwent resection in 2009 at [facility]. He did not have any radiation or chemotherapy. 2. Widely bony metastatic disease. The primary is unknown. The differential is either metastatic prostate cancer versus esophageal cancer versus some other primary. 3. Compression fracture of lumbar spine but there is no evidence of cord compression.. PLAN I have reviewed his available records and I had an extensive discussion with the patient and his who is a retired registered nurse. We discussed the differential diagnosis that this could be either metastatic prostate cancer or this could be recurrent metastatic esophageal cancer. However, the CT scan of the chest, abdomen and pelvis does not show any metastasis to the organs such as lung and liver. He has significant bone metastasis with compression fracture. He is quite symptomatic in that area. Patient is going to be transferred to [facility] to see Dr. Mukherjee. I have been told by the patient's nurse that Dr. Mukherjee has recommended kyphoplasty tomorrow. We will ask Dr. Mukherjee to do the biopsy of the soft tissue mass when he does the kyphoplasty to get the pathological diagnosis. In the meantime, I will order the CEA and PSA tumor markers. The patient will benefit from radiation therapy as well. Once he is transferred to the [facility], we will consult radiation oncology as well. I reviewed his blood test results. The CBC shows white count of 14, hemoglobin 10.2, platelet count 120. The comprehensive metabolic profile is normal except the bicarb is 34, GFR is 66, glucose 118. AST 67, alkaline phosphatase is very high at 977. Total protein is low at 5.6, albumin is 2.6. I do not think the patient has multiple myeloma. Most likely we are dealing with metastatic prostate cancer or metastatic recurrent esophageal cancer until proven otherwise. Once we have the pathological diagnosis, then we will discuss with the patient regarding the treatment options. Thank you for asking my opinion. MD DEWEY Kong/CELIA /5:27 PM /9:56 PM
[2017-11-01] VITALS (13 sets, daily range): BP systolic 99–123; BP diastolic 50–80; PULSE 50–86; RESP 15–20; TEMP 97.8–98.9; O2SAT 93–98
[2017-11-01] MEDS: MORPHINE SULFATE 2 MG/ML INJ IV PUSH PRN ×2 (01:07→05:31)
[2017-11-01] MEDS: CHLORHEXIDINE GLUCONATE 2 % 1 PACK (2 CLOTHS)(taper/protocol) TOPICAL SCH (04:00)
[2017-11-01] MEDS: DEXAMETHASONE SOD PHOS 4 MG/ML VIAL IV PUSH SCH ×3 (05:30→17:15)
[2017-11-01] MEDS ORDERED: MORPHINE SULFATE 2 MG/ML INJ IV PUSH PRN ×3 (08:00)
[2017-11-01] MEDS ORDERED: ACETAMINOPHEN 325 MG TAB PO PRN (08:00)
[2017-11-01] MEDS ORDERED: RESP: ALBUTEROL 2.5 MG/3 ML NEB (PRN) NEB (08:00)
[2017-11-01] MEDS: DOCUSATE SODIUM 50 MG/SENNA 8.6 MG TAB PO SCH ×2 (08:04→19:56)
[2017-11-01] MEDS: PANTOPRAZOLE SOD 40 MG DELAYED RELEASE TAB PO SCH (08:05)
[2017-11-01] MEDS: SODIUM CHLORIDE 0.9% FLUSH 10 ML FLUSH IV FLUSH SCH ×2 (08:05→19:56)
[2017-11-01] MEDS: RESP: ALBUTEROL 2.5 MG/IPRATROPIUM 0.5 MG NEB (SCH) NEB ×3 (09:20→19:45)
[2017-11-01] MEDS: RESP: ACETYLCYSTEINE 10% 30 ML NEB NEB SCH ×3 (09:20→19:45)
--- NOTE | 2017-11-01 09:36 | HHI.PR ---
Subjective Remarks Follow-up compression injuries. Complaining of back pain denies numbness and incontinence. Discussed with RN patient episodes of sinus bradycardia, heart rate 51 denies symptoms no dizziness, syncope, chest pain and shortness of breath. Previous EKG tracing interpreted by me with sinus rhythm no blocks. Objective Vitals Vital Signs Date Time Temp Pulse Resp B/P (MAP) Pulse Ox O2 Delivery O2 Flow Rate FiO2 11/01/17 09:20 94 Nasal Cannula 2.00 11/01/17 08:00 50 11/01/17 08:00 97.9 76 17 118/56 (76) 95 11/01/17 04:00 98.9 61 18 99/50 (66) 93 11/01/17 01:30 16 11/01/17 00:00 98.0 53 19 110/58 (75) 97 10/31/17 20:09 100 Nasal Cannula 2.00 10/31/17 20:00 98.4 65 24 116/56 (76) 100 10/31/17 18:40 98.7 68 18 108/55 (72) 96 10/31/17 16:00 98.5 70 17 126/60 (82) 97 10/31/17 12:05 98.2 79 20 110/61 (77) 89 I/O 10/31/17 10/31/17 10/31/17 11/01/17 11/01/17 11/01/17 07:00 15:00 23:00 07:00 15:00 23:00 Intake Total 240 ml 1250 ml 440 ml 699 ml Output Total 550 ml 800 ml 250 ml Balance -310 ml 1250 ml -360 ml 449 ml Intake Oral 240 ml 440 ml 0 ml IV Total 1250 ml 699 ml Output Urine Total 550 ml 800 ml 250 ml # Voids 2 # Bowel Movements 0 0 0 Result Diagram: 10/31/17 0425 10/31/17 0425 Imaging Last Impressions Thoracic Spine MRI 10/31/17 0000 Signed Impressions: Service Date/Time: Tuesday, October 31, 2017 10:02 - CONCLUSION: 1. Widespread bony metastatic disease in the thoracic spine. Metastatic disease to the posterior elements of T3 and T12 on the left side results in mild impression on the left posterior lateral thoracic canal without significant cord compression. No pathologic fracture. Davey Prince MD Lumbar Spine MRI 10/31/17 0000 Signed Impressions: Service Date/Time: Tuesday, October 31, 2017 10:02 - CONCLUSION: 1. Widespread bony metastatic disease with mild compression fractures of L1 and L3. 2. Metastatic disease at T12 posteriorly extending slightly into the posterior lateral canal at the thoracolumbar junction. At L3 left-sided pedicle and transverse process metastatic disease extends slightly into the left lateral recess. Overall there is no significant central canal stenosis. 3. There is also bony metastatic disease involving the upper sacrum and pelvis. Davey Prince MD Cervical Spine MRI 10/31/17 0000 Signed Impressions: Service Date/Time: Tuesday, October 31, 2017 10:02 - CONCLUSION: 1. Widespread patchy marrow replacement characteristic of bony metastatic disease without evidence of focal pathologic fracture or soft tissue extension into the spinal canal. The metastatic disease does not enhance significantly post contrast. No canal stenosis. Davey Prince MD Chest CT 10/30/17 1539 Signed Impressions: Service Date/Time: Monday, October 30, 2017 16:34 - CONCLUSION: 1. Osseous metastatic disease. This includes an expansile lesion involving what appears to be the left T3 lamina with mass effect on the left side of the thecal sac. 2. Small to moderate sized pericardial effusion. 3. Status post esophagectomy with gastric pull-through procedure. There is no visualized mass or adenopathy. 4. Underlying emphysema and mild scarring. 5. Small left pleural effusion. 6. Low attenuation lesion in the anterior left lobe of liver which is a nonspecific finding. Please see abdomen CT for further details. Chente Stone MD Chest X-Ray 10/30/17 1525 Signed Impressions: Service Date/Time: Monday, October 30, 2017 17:25 - CONCLUSION: No acute cardiopulmonary disease. Chente Stone MD Lumbar Spine CT 10/30/17 0000 Signed Impressions: Service Date/Time: Monday, October 30, 2017 16:34 - CONCLUSION: 1. Diffuse osseous metastatic disease with pathologic compression fractures at L1 and L3 vertebral bodies. There is limited posterior cortical destruction at L3 without gross epidural involvement. 2. Soft tissue mass in the left T12 lamina appears to extend into the posterior epidural space. 3. Soft tissue mass in the right sacrum involves the right S1 neural foramina. 4. Consider MRI examination if patient has radicular symptoms for better evaluation of epidural involvement. 5. Patient may be a candidate for RF ablation and cement augmentation at L1 and L3 vertebral bodies as long as patient does not have any focal neurologic symptoms at these levels. If so, consider neurosurgical consultation. Genaro Page MD Abdomen/Pelvis CT 10/30/17 0000 Signed Impressions: Service Date/Time: Monday, October 30, 2017 16:34 - CONCLUSION: 1. Osseous metastatic disease. There is an expansile destructive lesion involving the left L3 transverse process process and pedicle. 2. Postsurgical changes status post esophagectomy and gastric pull-through procedure. 3. 1.2 cm low-attenuation lesion in the anterior left lobe of the liver which is nonspecific. The differential diagnosis includes both metastatic disease and benign lesions. 4. Small to moderate pericardial effusion again noted. 5. Small left pleural effusion again noted. Chente Stone MD Objective Remarks GENERAL: WD WN in [place] SKIN: Warm and dry. HEAD: Atraumatic. Normocephalic. EYES: Pupils equal and round. No scleral icterus. No injection or drainage. ENT: No nasal bleeding or discharge. Mucous membranes pink and moist. NECK: Trachea midline. No JVD. CARDIOVASCULAR: Regular rhythm. Bradycardic 55/min RESPIRATORY: No accessory muscle use. Clear to auscultation. Breath sounds equal bilaterally. GASTROINTESTINAL: Abdomen soft, non-tender, nondistended. MUSCULOSKELETAL: Extremities without clubbing, cyanosis, or edema. No obvious deformities. NEUROLOGICAL: Awake and alert. No obvious cranial nerve deficits. Motor grossly within normal limits. Five out of 5 muscle strength in the arms and legs. Normal speech. A/P Problem List: (1) Intractable low back pain ICD Code: M54.5 - Low back pain Status: Acute (2) Pathologic lumbar vertebral fracture ICD Code: M84.48XA - Pathological fracture, other site, initial encounter for fracture Status: Acute Assessment and Plan Intractable back pain - Suspect metastatic disease to the spine causing compression fractures. - NSG may have surgical option available; widespread metastatic disease throughout the entire spine - Continue pain management we'll add oxycodone to IV morphine and steroids. - Consulted medical oncology will also need radiation therapy Pericardial effusion - Asymptomatic at this time, likely secondary to metastatic disease Pleural effusion - Asymptomatic at this time, likely secondary to metastatic disease GERD - home Protonix Insomnia - home temazepam and trazodone SB. Asymptomatic. Repeat EKG and monitor on telemetry Emphysema. Denies shortness of breath. Albuterol Chronic ast elevation. Neg Hep profile in the past. SCDs. NPO until further notice from NSG. Discharge Planning Patient is medically optimized for hypoplasty. No contraindication for proposed procedure Problem Qualifiers (1) Pathologic lumbar vertebral fracture: Qualified Codes: M84.48XA - Pathological fracture, other site, initial encounter for fracture Deondre Boyle MD Nov 01, 2017 09:36
[2017-11-01 13:47] LABS: HEMOGLOBIN A1C 6.3 % (4.3-6.0)
--- NOTE | 2017-11-01 14:08 | PD.CONS ---
[facility] Service Neurosurgery Consult Requested By Corina Crooks Reason for Consult Lumbar compression fractures Primary Care Physician Max Gandhi M.D. History of Present Illness This is a 72-year-old male with history of esophageal cancer diagnosed in 2009. He underwent surgery at [facility] in [place], h did not require radiation therapy nor or chemotherapy. Approximately two months ago he developed severe back pain. His pain was not relieved with [id number] medications. He saw his primary physician, Dr. Gandhi who ordered a chest x-ray, which was reported to be negative. His pain continued to get worse. His , a retired registered nurse advised him to come to the emergency room for further evaluation of his severe back pain. He denies any headaches noxious or vomiting. He denies any focal weakness of his upper or lower extremities. No seizure activity reported. Not long biting. No incontinence of stool or urine His pain is severe, in his upper back, aggravated when he when he coughs and moves . He denies any weakness or numbness, or tingling of both lower legs. He does not have any urinary incontinence or stool incontinence. He denies any fever or chills. His pain is aggravated by any movement. Pain is axial, without radicular distribution. CT scan of the lumbar spine which showed diffuse osseous metastatic disease with pathological compression fracture at L1 and L3 vertebral bodies. These was confident with an MRI, which show that the fractures at L1 and L3 are subacute IN NATURE Neurosurgical consultation was requested Review of Systems Constitutional: DENIES: Diaphoretic episodes, Fatigue, Fever, Weight gain, Weight loss, Chills, Dizziness, Change in appetite, Night Sweats Endocrine: DENIES: Heat/cold intolerance, Polydipsia, Polyuria, Polyphagia Eyes: DENIES: Blurred vision, Diplopia, Eye inflammation, Eye pain, Vision loss , Photosensitivity, Double Vision Ears, nose, mouth, throat: DENIES: Tinnitus, Hearing loss, Vertigo, Nasal discharge, Oral lesions, Throat pain, Hoarseness, Ear Pain, Running Nose, Epistaxis, Sinus Pain, Toothache, Odynophagia Respiratory: COMPLAINS OF: Apneas, Cough, DENIES: Snoring, Wheezing, Hemoptysis , Sputum production, Shortness of breath Cardiovascular: DENIES: Chest pain, Syncope, Dyspnea on Exertion, PND, Lower Extremity Edema, Orthopnea, Claudication Gastrointestinal: DENIES: Abdominal pain, Black stools, Bloody stools, Constipation, Diarrhea, Nausea, Vomiting, Difficulty Swallowing, Anorexia Genitourinary: DENIES: Sexual dysfunction, Urinary frequency, Urinary incontinence, Urgency, Hematuria, Dysuria, Nocturia, Penile Discharge, Testicular Pain, Testicular Swelling Musculoskeletal: COMPLAINS OF: Back pain, DENIES: Joint pain, Muscle aches, Stiffness, Joint Swelling, Neck pain Integumentary: DENIES: Abnormal pigmentation, Nail changes, Pruritus, Rash Hematologic/lymphatic: DENIES: Bruising, Lymphadenopathy Immunologic/allergic: DENIES: Eczema, Urticaria Neurologic: COMPLAINS OF: Abnormal gait, DENIES: Headache, Localized weakness, Paresthesias, Seizures, Speech Problems, Tremor, Poor Balance Past Family Social History Allergies: Coded Allergies: No Known Allergies (Verified Allergy, Unknown, 10/30/17) Past Medical History 1. Esophageal cancer which was diagnosed in 2009 and underwent surgery. 2. Resection of the distal esophagus with gastric pull-through. 3. Bipolar disorder. 4. Depression. 5. Gastroesophageal reflux disease. 6. Appendectomy. Past Surgical History 1. Protonix. 2. Trazodone. 3. Tizanidine. 4. Tramadol. 5. Temazepam. Active Ordered Medications Current Medications Sodium Chloride 1,000 ml @ 250 mls/hr Q4H ONCE IV Last administered on at 15:48; Start 10/30/17 at 15:45; Stop 10/30/17 at 19:44; Status DC Iohexol (Omnipaque 350 Inj) 95 ml STK-MED ONCE IVCONTRAST Last administered on 10/30/17at 16:48; Start 10/30/17 at 16:48; Stop 10/30/17 at 16:49; Status DC Morphine Sulfate (Morphine Inj) 4 mg ONCE ONCE IV PUSH Last administered on 10/30/17at 18:06; Start 10/30/17 at 18:00; Stop 10/30/17 at 18:01; Status DC Sodium Chloride (NS Flush) 2 ml UNSCH PRN IV FLUSH FLUSH AFTER USING IV ACCESS Last administered on 10/31/17at 04:59; Start 10/30/17 at 19:00 Sodium Chloride (NS Flush) 2 ml BID IV FLUSH Last administered on 11/01/17at 08: 05; Start 10/30/17 at 21:00 Acetaminophen (Tylenol) 650 mg Q4H PRN PO TEMP > 100.4; Start 10/30/17 at 19:00 Ondansetron HCl (Zofran Inj) 4 mg Q6H PRN IVP NAUSEA OR VOMITING; Start at 19:00 Naloxone HCl (Narcan Inj) 0.4 mg UNSCH PRN IV PUSH SEE LABEL COMMENTS; Start at 19:00 Senna/Docusate Sodium (Sheryl-Colace) 1 tab BID PO Last administered on at 08:04; Start 10/30/17 at 21:00 Magnesium Hydroxide (Milk Of Magnesia Liq) 30 ml Q12HR PRN PO Mild constipation ; Start 10/30/17 at 21:00 Sennosides (Senokot) 17.2 mg Q12HR PRN PO Moderate constipation; Start 10/30/17 at 21:00 Bisacodyl (Dulcolax Supp) 10 mg DAILY PRN RECTAL SEVERE CONSITIPATION; Start at 19:00 Pantoprazole Sodium (Protonix) 40 mg DAILY PO Last administered on 11/01/17at 08 :05; Start 10/31/17 at 09:00 Tizanidine HCl (Zanaflex) 4 mg HS PO Last administered on 10/31/17at 21:24; Start 10/30/17 at 21:00 Trazodone HCl (Desyrel) 200 mg HS PO Last administered on 10/31/17at 21:24; Start 10/30/17 at 21:00 Morphine Sulfate (Morphine Inj) 4 mg Q4H PRN IV PUSH pain Last administered on 10/30/17at 23:09; Start 10/30/17 at 22:00; Stop 10/31/17 at 00:32; Status DC Morphine Sulfate (Morphine Inj) 4 mg ONCE ONCE IV PUSH Last administered on 10/30/17at 19:59; Start 10/30/17 at 20:00; Stop 10/30/17 at 20:01; Status DC Temazepam (Restoril) 30 mg HS PRN PO INSOMNIA; Start 10/30/17 at 22:15 Morphine Sulfate (Morphine Inj) 2 mg Q4H PRN IV PUSH pain Last administered on 11/01/17at 05:31; Start 10/31/17 at 02:00; Stop 11/01/17 at 07:51; Status DC Sodium Chloride 250 ml @ 250 mls/hr BOLUS ONCE IV Last administered on at 01:00; Start 10/31/17 at 00:45; Stop 10/31/17 at 01:44; Status DC Sodium Chloride 1,000 ml @ 999 mls/hr BOLUS ONCE IV Last administered on 10/31at 14:12; Start 10/31/17 at 13:00; Stop 10/31/17 at 14:00; Status DC Sodium Chloride 1,000 ml @ 84 mls/hr [id number] IV Last administered on at 23:39; Start 10/31/17 at 13:00 Acetylcysteine (Mucomyst 10% Neb) 2 ml Q6HR WHILE AWAKE NEB NEB Last administered on 11/01/17at 09:20; Start 10/31/17 at 14:00 Albuterol/ Ipratropium (Duoneb Neb) 1 ampule Q6HR WHILE AWAKE NEB NEB Last administered on 11/01/17at 09:20; Start 10/31/17 at 14:00 Gadodiamide (Omniscan Pf Inj) 12 ml STK-MED ONCE IV PUSH Last administered on at 11:30; Start 10/31/17 at 11:30; Stop 10/31/17 at 13:53; Status DC Dexamethasone Sodium Phosphate (Decadron Inj) 4 mg Q6HR IV PUSH Last administered on 11/01/17at 11:58; Start 10/31/17 at 18:00 Chlorhexidine Gluconate (Chlorhexidine 2% Cloth) 3 pack DAILY@04 TOPICAL Last administered on 11/01/17at 04:00; Start 11/01/17 at 04:00; Stop 11/05/17 at 04:01 Chlorhexidine Gluconate (Chlorhexidine 2% Cloth) 3 pack UNSCH PRN TOPICAL HYGIENIC CARE; Start 10/31/17 at 22:00; Stop 11/05/17 at 21:52 Acetaminophen (Tylenol) 650 mg Q6H PRN PO PAIN SCALE 1 TO 2; Start 11/01/17 at 08:00 Oxycodone HCl (Roxicodone) 10 mg Q4H PRN PO PAIN SCALE 6 TO 10; Start 11/01/17 at 08:00 Morphine Sulfate (Morphine Inj) 1 mg Q3H PRN IV PUSH Pain 3-5; if unable to take PO; Start 11/01/17 at 08:00 Morphine Sulfate (Morphine Inj) 2 mg Q3H PRN IV PUSH Pain 6-10;if unable to take PO; Start 11/01/17 at 08:00 Morphine Sulfate (Morphine Inj) 2 mg Q3H PRN IV PUSH BREAKTHROUGH PAIN; Start 11/01/17 at 08:00 Oxycodone HCl (Roxicodone) 5 mg Q4H PRN PO PAIN SCALE 3 TO 5; Start 11/01/17 at 08:00 Albuterol Sulfate (Albuterol Neb) 2.5 mg Q4HR NEB PRN NEB SOB/WHEEZING; Start 11/01/17 at 08:00 Cefazolin Sodium/ Dextrose 50 ml @ 150 mls/hr ONCE ONCE IV ; Start 11/02/17 at 06:00; Stop 11/02/17 at 06:19 Chlorhexidine Gluconate (Hibiclens 4% Top Soln) 1 applic HS TOP ; Start at 21:00; Stop 11/03/17 at 21:01 Family History Family history is significant for esophageal cancer. Social History The patient used to smoke cigarettes, quit a long time ago. He drinks alcohol socially. No illicit drug use Physical Exam Vital Signs Vital Signs Date Time Temp Pulse Resp B/P (MAP) Pulse Ox O2 Delivery O2 Flow Rate FiO2 11/01/17 12:00 68 11/01/17 12:00 98.1 64 15 106/80 (89) 98 11/01/17 10:00 59 11/01/17 09:20 94 Nasal Cannula 2.00 11/01/17 08:00 50 11/01/17 08:00 97.9 76 17 118/56 (76) 95 11/01/17 04:00 98.9 61 18 99/50 (66) 93 11/01/17 01:30 16 11/01/17 00:00 98.0 53 19 110/58 (75) 97 10/31/17 20:09 100 Nasal Cannula 2.00 10/31/17 20:00 98.4 65 24 116/56 (76) 100 10/31/17 18:40 98.7 68 18 108/55 (72) 96 10/31/17 16:00 98.5 70 17 126/60 (82) 97 Physical Exam The patient is alert, awake and oriented to time, place and person. Speech is fluent. Higher cognitive functions are normal. Cranial nerve examination demonstrates the pupils to be equal, round, and reactive to light. Extra-ocular movements are intact. Facial motor and sensory function are normal and symmetrical. Gross hearing is intact, bilaterally. The uvula is midline and elevates symmetrically with the soft palate. Sternocleidomastoid and trapezius muscles have normal and symmetrical strength. Other cranial nerves are intact. Neck is soft and supple. Cervical spine has a full range of motion in anterior flexion, extension, lateral bending, and rotation without pain. There is no tenderness to palpation to the spinous processes or paraspinal muscles. Muscle testing reveals normal bulk and tone overall without rigidity, spasticity , fasciculations, or atrophy. Muscle strength is 5/5 in all muscle groups of both upper extremities including deltoid, biceps, triceps, brachioradialis, wrist extension and camp guard. In the lower extremities, strength is 5/5 in both iliopsoas, quadriceps, hamstrings, plantar flexion, dorsiflexion, and extensor hallicus longus. Sensory examination is intact to light touch and sharp/dull discrimination in both the upper and lower extremities, symmetrically. Deep tendon reflexes are 2+ and symmetrical in the biceps, triceps, and brachioradialis, bilaterally, in the upper extremities. In the lower extremities , the patellar and Achilles are 2+, bilaterally. There is a bilateral plantar flexion response. Hoffmanns sign is negative. There is no clonus or other abnormal reflexes noted. Cerebellar examination is intact to [id number] test, rapid rhythmic alternating motion. There is no dysmetria, dysdiadochokinesia, truncal ataxia, or tremor. Lungs clear, non labor respirations. No wheezing Heart. Regiular rythm and rate Skin dry, no lesions seen Laboratory Laboratory Tests Test 10/31/17 18:40 11/01/17 04:30 11/01/17 11:46 Nasal Screen MRSA (PCR) MRSA NOT DETECTED Carcinoembryonic Antigen 5.4 Prostate Specific Antigen 0.70 Result Diagram: 10/31/17 0425 10/31/17 0425 Imaging Last 48 hours Impressions Thoracic Spine MRI 10/31/17 0000 Signed Impressions: Service Date/Time: Tuesday, October 31, 2017 10:02 - CONCLUSION: 1. Widespread bony metastatic disease in the thoracic spine. Metastatic disease to the posterior elements of T3 and T12 on the left side results in mild impression on the left posterior lateral thoracic canal without significant cord compression. No pathologic fracture. Davey Prince MD Lumbar Spine MRI 10/31/17 0000 Signed Impressions: Service Date/Time: Tuesday, October 31, 2017 10:02 - CONCLUSION: 1. Widespread bony metastatic disease with mild compression fractures of L1 and L3. 2. Metastatic disease at T12 posteriorly extending slightly into the posterior lateral canal at the thoracolumbar junction. At L3 left-sided pedicle and transverse process metastatic disease extends slightly into the left lateral recess. Overall there is no significant central canal stenosis. 3. There is also bony metastatic disease involving the upper sacrum and pelvis. Davey Prince MD Cervical Spine MRI 10/31/17 0000 Signed Impressions: Service Date/Time: Tuesday, October 31, 2017 10:02 - CONCLUSION: 1. Widespread patchy marrow replacement characteristic of bony metastatic disease without evidence of focal pathologic fracture or soft tissue extension into the spinal canal. The metastatic disease does not enhance significantly post contrast. No canal stenosis. Davey Prince MD Chest CT 10/30/17 1539 Signed Impressions: Service Date/Time: Monday, October 30, 2017 16:34 - CONCLUSION: 1. Osseous metastatic disease. This includes an expansile lesion involving what appears to be the left T3 lamina with mass effect on the left side of the thecal sac. 2. Small to moderate sized pericardial effusion. 3. Status post esophagectomy with gastric pull-through procedure. There is no visualized mass or adenopathy. 4. Underlying emphysema and mild scarring. 5. Small left pleural effusion. 6. Low attenuation lesion in the anterior left lobe of liver which is a nonspecific finding. Please see abdomen CT for further details. Chente Stone MD Chest X-Ray 10/30/17 1525 Signed Impressions: Service Date/Time: Monday, October 30, 2017 17:25 - CONCLUSION: No acute cardiopulmonary disease. Chente Stone MD Attending Statement 72 year old male with History of esophageal cancer and widely bony metastatic disease. Compression fracture of lumbar spine L1, L3, no evidence of cordcompression.. I reviewed his clinical and radiological studies. He is on very severe axial pain without any radiculopathy, related to the compression fractures at L1 and L3. I have discussed with him the alternatives of treatment. He has failed conservative treatment for several weeks I suspect metastatic disease offered him the possibility of a biopsy of L1 and L3 with a kyphoplasty. We have discussed the details including the [id number] details of the surgical procedure, its indications, alternatives, risks, and potential complications. Risks and potential complications include, but are not limited to, infection, blood loss, CSF leak, partial or complete loss of sight in one or both eyes, paresis, paralysis, permanent pain or difficulty swallowing, loss of bowel or bladder function, complications from anesthesia, blood clot, stroke, myocardial infarction, or even . I would further narcotic analgesics for pain control. The necessity of a biopsy for tissue diagnosis was explained to the patient The patient has comorbidities which increase the risk for developing complications. I recommend he undergoes an evaluation and obtain medical clearance prior to the procedure I reviewed his blood test results. The CBC shows white count of 14, hemoglobin 10.2, platelet count 120. The comprehensive metabolic profile is normal except the bicarb is 34, GFR is 66, glucose 118. AST 67, alkaline phosphatase is very high at 977, which is consistent with metastatic disease. Total protein is low at 5.6, albumin is 2.6. I reviewed the consultation from the oncologist. I will place a consultation to a radiation oncologist her postoperative radiation treatment depending on the results of the biopsy Pulmonary. Continue aggressive pulmonary toilette, nasotracheal suction, and breathing treatments with nebulizers. Daily PT and OT Nutrition. Tolerating Oral diet Renal. Continue to monitor closely urine output, BUN and creatinine Endocrine. Continue to Monitor serial Acu checks and SSI as needed in detail ID continue to monitor for signs of infection Continue Protonix for stress ulcer prophylaxis Continue Gera hose and SCD's for DVT prophylaxis Bartolo Mukherjee MD Nov 01, 2017 14:08
--- NOTE | 2017-11-01 14:08 | PD.ONC.PN ---
Subjective Subjective Remarks Afebrile overnight. Patient continuing to have diffuse bony pain. pain is improved with Roxicodone and is primarily in back. Denies weakness. reports he is still able to ambulate independently. No problems with urination. hoping to be able to go home after discharge. Objective Data Date Time Temp Pulse Resp B/P (MAP) Pulse Ox O2 Delivery O2 Flow Rate FiO2 11/01/17 12:00 68 11/01/17 12:00 98.1 64 15 106/80 (89) 98 11/01/17 10:00 59 11/01/17 09:20 94 Nasal Cannula 2.00 11/01/17 08:00 50 11/01/17 08:00 97.9 76 17 118/56 (76) 95 11/01/17 04:00 98.9 61 18 99/50 (66) 93 11/01/17 01:30 16 11/01/17 00:00 98.0 53 19 110/58 (75) 97 10/31/17 20:09 100 Nasal Cannula 2.00 10/31/17 20:00 98.4 65 24 116/56 (76) 100 10/31/17 18:40 98.7 68 18 108/55 (72) 96 10/31/17 16:00 98.5 70 17 126/60 (82) 97 11/01/17 11/01/17 11/01/17 07:00 15:00 23:00 Intake Total 699 ml Output Total 250 ml Balance 449 ml Result Diagram: 10/31/17 0425 10/31/17 0425 Laboratory Results Laboratory Tests Test 10/31/17 18:40 11/01/17 04:30 11/01/17 11:46 Nasal Screen MRSA (PCR) MRSA NOT DETECTED Carcinoembryonic Antigen 5.4 NG/ML Prostate Specific Antigen 0.70 NG/ML Imaging Studies Last Impressions Thoracic Spine MRI 10/31/17 0000 Signed Impressions: Service Date/Time: Tuesday, October 31, 2017 10:02 - CONCLUSION: 1. Widespread bony metastatic disease in the thoracic spine. Metastatic disease to the posterior elements of T3 and T12 on the left side results in mild impression on the left posterior lateral thoracic canal without significant cord compression. No pathologic fracture. Davey Prince MD Lumbar Spine MRI 10/31/17 0000 Signed Impressions: Service Date/Time: Tuesday, October 31, 2017 10:02 - CONCLUSION: 1. Widespread bony metastatic disease with mild compression fractures of L1 and L3. 2. Metastatic disease at T12 posteriorly extending slightly into the posterior lateral canal at the thoracolumbar junction. At L3 left-sided pedicle and transverse process metastatic disease extends slightly into the left lateral recess. Overall there is no significant central canal stenosis. 3. There is also bony metastatic disease involving the upper sacrum and pelvis. Davey Prince MD Cervical Spine MRI 10/31/17 0000 Signed Impressions: Service Date/Time: Tuesday, October 31, 2017 10:02 - CONCLUSION: 1. Widespread patchy marrow replacement characteristic of bony metastatic disease without evidence of focal pathologic fracture or soft tissue extension into the spinal canal. The metastatic disease does not enhance significantly post contrast. No canal stenosis. Davey Prince MD Chest CT 10/30/17 1539 Signed Impressions: Service Date/Time: Monday, October 30, 2017 16:34 - CONCLUSION: 1. Osseous metastatic disease. This includes an expansile lesion involving what appears to be the left T3 lamina with mass effect on the left side of the thecal sac. 2. Small to moderate sized pericardial effusion. 3. Status post esophagectomy with gastric pull-through procedure. There is no visualized mass or adenopathy. 4. Underlying emphysema and mild scarring. 5. Small left pleural effusion. 6. Low attenuation lesion in the anterior left lobe of liver which is a nonspecific finding. Please see abdomen CT for further details. Chente Stone MD Chest X-Ray 10/30/17 1525 Signed Impressions: Service Date/Time: Monday, October 30, 2017 17:25 - CONCLUSION: No acute cardiopulmonary disease. Chente Stone MD Lumbar Spine CT 10/30/17 0000 Signed Impressions: Service Date/Time: Monday, October 30, 2017 16:34 - CONCLUSION: 1. Diffuse osseous metastatic disease with pathologic compression fractures at L1 and L3 vertebral bodies. There is limited posterior cortical destruction at L3 without gross epidural involvement. 2. Soft tissue mass in the left T12 lamina appears to extend into the posterior epidural space. 3. Soft tissue mass in the right sacrum involves the right S1 neural foramina. 4. Consider MRI examination if patient has radicular symptoms for better evaluation of epidural involvement. 5. Patient may be a candidate for RF ablation and cement augmentation at L1 and L3 vertebral bodies as long as patient does not have any focal neurologic symptoms at these levels. If so, consider neurosurgical consultation. Genaro Page MD Abdomen/Pelvis CT 10/30/17 0000 Signed Impressions: Service Date/Time: Monday, October 30, 2017 16:34 - CONCLUSION: 1. Osseous metastatic disease. There is an expansile destructive lesion involving the left L3 transverse process process and pedicle. 2. Postsurgical changes status post esophagectomy and gastric pull-through procedure. 3. 1.2 cm low-attenuation lesion in the anterior left lobe of the liver which is nonspecific. The differential diagnosis includes both metastatic disease and benign lesions. 4. Small to moderate pericardial effusion again noted. 5. Small left pleural effusion again noted. Chente Stoen MD Administered Medications Medications (Trade) Dose Ordered Sig/Pasquale Route PRN Reason Start Time Stop Time Status Last Admin Dose Admin Sodium Chloride (NS Flush) 2 ml UNSCH PRN IV FLUSH FLUSH AFTER USING IV ACCESS 10/30/17 19:00 10/31/17 04:59 Sodium Chloride (NS Flush) 2 ml BID IV FLUSH 10/30/17 21:00 11/01/17 08:05 Senna/Docusate Sodium (Sheryl-Colace) 1 tab BID PO 10/30/17 21:00 11/01/17 08:04 Pantoprazole Sodium (Protonix) 40 mg DAILY PO 10/31/17 09:00 11/01/17 08:05 Tizanidine HCl (Zanaflex) 4 mg HS PO 10/30/17 21:00 10/31/17 21:24 Trazodone HCl (Desyrel) 200 mg HS PO 10/30/17 21:00 10/31/17 21:24 Sodium Chloride 1,000 ml @ 84 mls/hr [id number] IV 10/31/17 13:00 10/31/17 23:39 Acetylcysteine (Mucomyst 10% Neb) 2 ml Q6HR WHILE AWAKE NEB NEB 10/31/17 14:00 11/01/17 09:20 Albuterol/ Ipratropium (Duoneb Neb) 1 ampule Q6HR WHILE AWAKE NEB NEB 10/31/17 14:00 11/01/17 09:20 Dexamethasone Sodium Phosphate (Decadron Inj) 4 mg Q6HR IV PUSH 10/31/17 18:00 11/01/17 11:58 Chlorhexidine Gluconate (Chlorhexidine 2% Cloth) 3 pack DAILY@04 TOPICAL 11/01/17 04:00 11/05/17 04:01 11/01/17 04:00 Objective Remarks GENERAL: Pleasant elderly male, lying in bed in nad. SKIN: Warm and dry. HEAD: Normocephalic. EYES: No scleral icterus. No injection or drainage. NECK: Supple, trachea midline. CARDIOVASCULAR: Regular rate and rhythm RESPIRATORY: Breath sounds equal bilaterally. No accessory muscle use. GASTROINTESTINAL: Abdomen soft, non-tender, nondistended. EXTREMITIES: No cyanosis NEUROLOGICAL: awake and alert, normal speech. able to move extremities. Assessment/Plan Problem List: (1) Metastatic disease ICD Codes: C79.9 - Secondary malignant neoplasm of unspecified site Status: Acute Plan: 11/01: await biopsy. will go ahead and consult radiation oncology as well. Yaz planning to perform kyphoplasty with biopsy tomorrow per nurse. --Widely bony metastatic disease. --primary is unknown. --differential includes metastatic prostate cancer versus esophageal cancer versus some other primary. --CT chest, abdomen and pelvis does not show any metastasis to the organs such as lung and liver. --CEA and PSA tumor markers. Assessment 72y/o male with metastatic disease to the bone with unknown primary at this time. h/p Esophageal cancer, 2010, s/p resection of the distal esophagus with gastric pull-through. Bipolar disorder. Depression. Gastroesophageal reflux disease. Appendectomy. Attending Statement The exam, history, and the medical decision-making described in the above note were completed with the assistance of the mid-level provider. I reviewed and agree with the findings presented. I attest that I had a [id number] encounter with the patient on the same day, and personally performed and documented my assessment and findings in the medical record. Back has improved with narcotics. will have kyphoplasty and bx tomorrow. PSA is NORMAL. primary site is unknown at this time. D/W Dr Paulino for XRT next week. chemo after the XRT. d/w RN. Pt is going to be transfer to oncology soon. Micaela Benavidez Nov 01, 2017 14:08 Celia Waller MD Nov 01, 2017 21:38
[2017-11-01] MEDS: SODIUM CHLOR 0.9% 1000 ML INJ 1,000 ML IV SCH (14:12)
[2017-11-01] MEDS: SODIUM CHLORIDE 0.9% FLUSH 10 ML FLUSH IV FLUSH PRN (19:56)
[2017-11-01] MEDS: traZODone HCL 100 MG TAB PO SCH (19:56)
[2017-11-01] MEDS: MAGNESIUM HYDROXIDE SUSP 30 ML CUP PO PRN (20:03)
[2017-11-01] MEDS: SENNOSIDES 8.6 MG TAB PO PRN (20:03)
[2017-11-01] MEDS: CHLORHEXIDINE GLUCONATE 4% SOLN 120 ML BTL TOP SCH (21:00)
[2017-11-02] VITALS (17 sets, daily range): BP systolic 112–147; BP diastolic 62–78; PULSE 52–72; RESP 17–20; TEMP 97.4–98.3; O2SAT 92–100
[2017-11-02] MEDS: SODIUM CHLOR 0.9% 1000 ML INJ 1,000 ML IV SCH (00:01)
[2017-11-02] MEDS: CHLORHEXIDINE GLUCONATE 2 % 1 PACK (2 CLOTHS)(taper/protocol) TOPICAL SCH (04:00)
[2017-11-02] MEDS: DEXAMETHASONE SOD PHOS 4 MG/ML VIAL IV PUSH SCH ×4 (04:18→18:55)
[2017-11-02] MEDS ORDERED: ceFAZolin 2 GM PREMIX 50 ML IV ONE (06:00)
[2017-11-02] MEDS: PANTOPRAZOLE SOD 40 MG DELAYED RELEASE TAB PO SCH (08:35)
[2017-11-02] MEDS: SODIUM CHLORIDE 0.9% FLUSH 10 ML FLUSH IV FLUSH SCH ×2 (08:36→21:00)
[2017-11-02] MEDS: RESP: ACETYLCYSTEINE 10% 30 ML NEB NEB SCH ×3 (08:49→20:00)
[2017-11-02] MEDS: RESP: ALBUTEROL 2.5 MG/IPRATROPIUM 0.5 MG NEB (SCH) NEB ×3 (08:52→20:30)
[2017-11-02] MEDS ORDERED: MAGNESIUM CITRATE SOLN 300 ML BTL PO PRN (09:00)
[2017-11-02] MEDS: DOCUSATE SODIUM 50 MG/SENNA 8.6 MG TAB PO SCH ×2 (09:00→21:22)
--- NOTE | 2017-11-02 10:05 | PD.ONC.PN ---
Subjective Subjective Remarks Afebrile overnight. Patient resting in bed. Waiting to go for kyphoplasty and biopsy. He is hoping this procedure will improve his pain. Objective Data Date Time Temp Pulse Resp B/P (MAP) Pulse Ox O2 Delivery O2 Flow Rate FiO2 11/02/17 08:52 95 Nasal Cannula 3.00 11/02/17 08:39 97.6 71 20 128/78 (95) 95 11/02/17 06:00 54 11/02/17 05:00 52 11/02/17 04:00 98.2 63 18 123/68 (86) 97 11/02/17 04:00 60 11/02/17 03:00 58 11/02/17 02:00 58 11/02/17 01:00 56 11/02/17 00:05 98.3 57 18 112/62 (79) 99 11/02/17 00:00 57 11/01/17 23:00 58 11/01/17 22:00 68 11/01/17 22:00 98.6 68 18 123/59 (80) 98 11/01/17 20:00 62 11/01/17 20:00 98.0 86 20 117/74 (88) 94 11/01/17 19:45 97 Nasal Cannula 2.00 11/01/17 18:00 75 11/01/17 16:00 68 11/01/17 16:00 97.8 68 19 115/56 (75) 93 11/01/17 14:00 57 11/01/17 12:00 68 11/01/17 12:00 98.1 64 15 106/80 (89) 98 11/02/17 11/02/17 11/02/17 07:00 15:00 23:00 Intake Total 1460 ml Output Total 250 ml Balance 1210 ml Result Diagram: 10/31/17 0425 10/31/17 0425 Laboratory Results Laboratory Tests Test 11/01/17 11:46 Hemoglobin A1c 6.3 % Prostate Specific Antigen 0.70 NG/ML Administered Medications Medications (Trade) Dose Ordered Sig/Pasquale Route PRN Reason Start Time Stop Time Status Last Admin Dose Admin Sodium Chloride (NS Flush) 2 ml UNSCH PRN IV FLUSH FLUSH AFTER USING IV ACCESS 10/30/17 19:00 11/01/17 19:56 Sodium Chloride (NS Flush) 2 ml BID IV FLUSH 10/30/17 21:00 11/02/17 08:36 Senna/Docusate Sodium (Sheryl-Colace) 1 tab BID PO 10/30/17 21:00 11/01/17 19:56 Magnesium Hydroxide (Milk Of Magnclaudia Liq) 30 ml Q12HR PRN PO Mild constipation 10/30/17 21:00 11/01/17 20:03 Sennosides (Senokot) 17.2 mg Q12HR PRN PO Moderate constipation 10/30/17 21:00 11/01/17 20:03 Pantoprazole Sodium (Protonix) 40 mg DAILY PO 10/31/17 09:00 11/02/17 08:35 Tizanidine HCl (Zanaflex) 4 mg HS PO 10/30/17 21:00 11/01/17 19:56 Trazodone HCl (Desyrel) 200 mg HS PO 10/30/17 21:00 11/01/17 19:56 Sodium Chloride 1,000 ml @ 60 mls/hr [id number] IV 10/31/17 13:00 11/02/17 00:01 Acetylcysteine (Mucomyst 10% Neb) 2 ml Q6HR WHILE AWAKE NEB NEB 10/31/17 14:00 11/01/17 19:45 Albuterol/ Ipratropium (Duoneb Neb) 1 ampule Q6HR WHILE AWAKE NEB NEB 10/31/17 14:00 11/02/17 08:52 Dexamethasone Sodium Phosphate (Decadron Inj) 4 mg Q6HR IV PUSH 10/31/17 18:00 11/02/17 04:18 Chlorhexidine Gluconate (Chlorhexidine 2% Cloth) 3 pack DAILY@04 TOPICAL 11/01/17 04:00 11/05/17 04:01 11/01/17 04:00 Oxycodone HCl (Roxicodone) 10 mg Q4H PRN PO PAIN SCALE 6 TO 10 11/01/17 08:00 11/02/17 08:35 Objective Remarks GENERAL: Pleasant male, sitting up in bed in nad. SKIN: Warm and dry. HEAD: Normocephalic. EYES: No injection or drainage. NECK: Supple, trachea midline. CARDIOVASCULAR: Regular rate and rhythm RESPIRATORY: Breath sounds equal bilaterally. No accessory muscle use. GASTROINTESTINAL: Abdomen soft, non-tender, nondistended. EXTREMITIES: No cyanosis NEUROLOGICAL: aox3. normal speech. moving all extremities. able to walk independently. Assessment/Plan Problem List: (1) Metastatic disease ICD Codes: C79.9 - Secondary malignant neoplasm of unspecified site Status: Acute Plan: 11/02: kyphoplasty and biopsy today. will plan for follow up in clinic next week to review biopsy results. fs faxed to new patient referrals for follow up with Dr. Waller in one week --Widely bony metastatic disease. --primary is unknown. --differential includes metastatic prostate cancer versus esophageal cancer versus some other primary. --CT chest, abdomen and pelvis does not show any metastasis to the organs such as lung and liver. --CEA and PSA tumor markers. Assessment 72y/o male with metastatic disease to the bone with unknown primary at this time. h/p Esophageal cancer, 2009, s/p resection of the distal esophagus with gastric pull-through. Bipolar disorder. Depression. Gastroesophageal reflux disease. Appendectomy. Attending Statement The exam, history, and the medical decision-making described in the above note were completed with the assistance of the mid-level provider. I reviewed and agree with the findings presented. I attest that I had a [id number] encounter with the patient on the same day, and personally performed and documented my assessment and findings in the medical record. Still has back pain for kyphoplasty and bx today. XRT next week. chemo after the bx result. Micaela Benavidez Nov 02, 2017 10:05 Celia Waller MD Nov 02, 2017 17:56
--- NOTE | 2017-11-02 10:15 | HHI.PR ---
Subjective Remarks Follow-up compression fracture. Pain management with by mouth medicine. Elevated CEA states negative C scope over [address] Cooper. Also reports of constipation discussed with RN Objective Vitals Vital Signs Date Time Temp Pulse Resp B/P (MAP) Pulse Ox O2 Delivery O2 Flow Rate FiO2 11/02/17 08:52 95 Nasal Cannula 3.00 11/02/17 08:39 97.6 71 20 128/78 (95) 95 11/02/17 06:00 54 11/02/17 05:00 52 11/02/17 04:00 98.2 63 18 123/68 (86) 97 11/02/17 04:00 60 11/02/17 03:00 58 11/02/17 02:00 58 11/02/17 01:00 56 11/02/17 00:05 98.3 57 18 112/62 (79) 99 11/02/17 00:00 57 11/01/17 23:00 58 11/01/17 22:00 68 11/01/17 22:00 98.6 68 18 123/59 (80) 98 11/01/17 20:00 62 11/01/17 20:00 98.0 86 20 117/74 (88) 94 11/01/17 19:45 97 Nasal Cannula 2.00 11/01/17 18:00 75 11/01/17 16:00 68 11/01/17 16:00 97.8 68 19 115/56 (75) 93 11/01/17 14:00 57 11/01/17 12:00 68 11/01/17 12:00 98.1 64 15 106/80 (89) 98 I/O 11/01/17 11/01/17 11/01/17 11/02/17 11/02/17 11/02/17 07:00 15:00 23:00 07:00 15:00 23:00 Intake Total 699 ml 920 ml 480 ml 1460 ml Output Total 250 ml 450 ml 250 ml Balance 449 ml 920 ml 30 ml 1210 ml Intake Oral 0 ml 480 ml 480 ml IV Total 699 ml 920 ml 980 ml Output Urine Total 250 ml 450 ml 250 ml # Bowel Movements 0 0 Result Diagram: 10/31/1742410/31/17424 Objective Remarks GENERAL: WD WN in [place] SKIN: Warm and dry. HEAD: Atraumatic. Normocephalic. EYES: Pupils equal and round. No scleral icterus. No injection or drainage. ENT: No nasal bleeding or discharge. Mucous membranes pink and moist. NECK: Trachea midline. No JVD. CARDIOVASCULAR: Regular rate and rhythm RESPIRATORY: No accessory muscle use. Clear to auscultation. Breath sounds equal bilaterally. GASTROINTESTINAL: Abdomen soft, non-tender, nondistended. MUSCULOSKELETAL: Extremities without clubbing, cyanosis, or edema. No obvious deformities. NEUROLOGICAL: Awake and alert. No obvious cranial nerve deficits. Motor grossly within normal limits. Five out of 5 muscle strength in the arms and legs. Normal speech. A/P Problem List: (1) Intractable low back pain ICD Code: M54.5 - Low back pain Status: Acute (2) Pathologic lumbar vertebral fracture ICD Code: M84.48XA - Pathological fracture, other site, initial encounter for fracture Status: Acute Assessment and Plan Intractable back pain - Suspect metastatic disease to the spine causing compression fractures. - NSG for kyphoplasty. - Continue pain management we'll add oxycodone to IV morphine and steroids. - Consulted medical oncology and radiation therapy Pericardial effusion - Asymptomatic at this time, likely secondary to metastatic disease. Consider echocardiogram Pleural effusion - Asymptomatic at this time, likely secondary to metastatic disease. May need thoracentesis if worsening hypoxia currently on 3 L GERD - home Protonix Insomnia - home temazepam and trazodone SB. Asymptomatic. EKG noted. Improved monitor on telemetry Emphysema. Denies shortness of breath. Albuterol Chronic ast elevation. Neg Hep profile in the past. SCDs. NPO for surgery today Discharge Planning Patient is medically optimized for khypoplasty. No contraindication for proposed procedure Problem Qualifiers (1) Pathologic lumbar vertebral fracture: Qualified Codes: M84.48XA - Pathological fracture, other site, initial encounter for fracture Doendre Boyle MD Nov 02, 2017 10:15
[2017-11-02] MEDS ORDERED: PROPOFOL 200 MG/20 ML AMP IV ONE (12:00)
[2017-11-02] MEDS ORDERED: LIDOCAINE HCL 1% PF 5 ML SYRINGE OTHER ONE (12:00)
[2017-11-02] MEDS ORDERED: PHENYLEPH/NS 1000 MCG/10 ML SYR IV ONE (12:00)
[2017-11-02] MEDS ORDERED: ePHEDrine/NS 25 MG/5 ML SYRINGE IV ONE (12:00)
[2017-11-02] MEDS ORDERED: ROCURONIUM INJ 50 MG/5 ML VIAL IV ONE (12:00)
[2017-11-02] MEDS ORDERED: BUPIVACAINE HCL PF 0.5% 30 ML VIAL INFIL ONE (15:47)
--- NOTE | 2017-11-02 16:15 | EKG ---
Date Performed: 11/01/2017 Time Performed: 14:18:31 PTAGE: 72 years EKG: Sinus rhythm NORMAL ECG PREVIOUS TRACING : 10/30/2017 15.34 Since previous tracing, no significant change noted DOCTOR: Seamus Dunbar Interpretating Date/Time 11/02/2017 16:14:05
[2017-11-02] MEDS ORDERED: *morphine SULFATE 4 MG/ML PERIprocedure ONLY ONE ×2 (17:09→17:24)
[2017-11-02] MEDS ORDERED: DO NOT ADM ANY ANTICOAGULANT DRUGS PRN (17:45)
[2017-11-02] MEDS ORDERED: MORPHINE SULFATE 2 MG/ML INJ IV PRN ×2 (17:45)
[2017-11-02] MEDS ORDERED: ACETAMINOPHEN 325 MG TAB PO PRN (17:45)
[2017-11-02] MEDS ORDERED: ACETAMINOPHEN/HYDROcodone 325 MG/10 MG TAB PO PRN (17:45)
--- NOTE | 2017-11-02 17:47 | RADRPT ---
EXAM DATE/TIME: 11/02/2017 15:15 [facility] COMPARISON: No previous studies available for comparison. INDICATIONS : L1 and L3 kyphoplasty. MEDICAL HISTORY : Carcinoma, esophageal. SURGICAL HISTORY : Appendectomy. Esophageal ca surgery. ENCOUNTER: Subsequent ACUITY: 4 - 6 days PAIN SCORE: Non-responsive. LOCATION: Lumbar spine. FINDINGS: Status post L1 and L3 kyphoplasty. 2 anterior spot films revealed good filling of the vertebral body with cement. CONCLUSION: L1-L3 kyphoplasty as above. Kenny Mcclellan MD FACR on November 02, 2017 at 17:44 Board Certified Radiologist. This report was verified electronically.
[2017-11-02] MEDS: NS + KCL 20 MEQ INJ 1,000 ML IV SCH (18:25)
[2017-11-02] MEDS: CHLORHEXIDINE GLUCONATE 4% SOLN 120 ML BTL TOP SCH (21:00)
[2017-11-02] MEDS: DOCUSATE SODIUM 100 MG CAP PO SCH (21:22)
[2017-11-02] MEDS: traZODone HCL 100 MG TAB PO SCH (21:22)
[2017-11-02] MEDS: ceFAZolin 2 GM PREMIX 50 ML IV SCH (21:22)
[2017-11-03] VITALS (9 sets, daily range): BP systolic 117–158; BP diastolic 58–80; PULSE 54–80; RESP 17–18; TEMP 96.4–97.9; O2SAT 93–100
[2017-11-03] MEDS: DEXAMETHASONE SOD PHOS 4 MG/ML VIAL IV PUSH SCH ×3 (00:10→12:21)
[2017-11-03] MEDS: SENNOSIDES 8.6 MG TAB PO PRN (00:13)
[2017-11-03] MEDS: ACETAMINOPHEN/HYDROcodone 325 MG/10 MG TAB PO PRN ×4 (00:13→21:41)
[2017-11-03] MEDS: NS + KCL 20 MEQ INJ 1,000 ML IV SCH (03:35)
[2017-11-03] MEDS: CHLORHEXIDINE GLUCONATE 2 % 1 PACK (2 CLOTHS)(taper/protocol) TOPICAL SCH (04:00)
[2017-11-03] MEDS: ceFAZolin 2 GM PREMIX 50 ML IV SCH ×2 (05:05→12:21)
[2017-11-03] MEDS: SODIUM CHLORIDE 0.9% FLUSH 10 ML FLUSH IV FLUSH SCH ×2 (07:39→21:41)
[2017-11-03] MEDS: RESP: ACETYLCYSTEINE 10% 30 ML NEB NEB SCH ×3 (08:00→20:00)
[2017-11-03] MEDS: RESP: ALBUTEROL 2.5 MG/IPRATROPIUM 0.5 MG NEB (SCH) NEB ×3 (08:00→20:31)
--- NOTE | 2017-11-03 09:13 | PD.OP ---
Operative Report Date of Surgery: Nov 02, 2017 Preoperative Diagnosis: L1, L3 compression fractures Postoperative Diagnosis: L1, L3 compression fractures Procedure: L1 kyphoplasty L3 kyphoplasty Surgeon: Bartolo Mukherjee Junior Accounting Clerk(s): Marleni Matthews Operation and Findings: INDICATIONS FOR THE PROCEDURE Mr Raphael is a 72 year-old malewho presented with intractable pain related to a compression fracture. He has suspected metastatic disease with compression fractures at L1 and L3. kyphoplasty was indicated as the most appropriate form of treatment. The [id number] details of the procedure, indications, alternatives, risks and potential complications were fully discussed with the patient. The patient fully understood. All The questions were answered. No guarantees were given. The patient voiced requesting the procedure and provided informed consents. The patient was offered the alternative of delaying the procedure and continuing with nonsurgical management. DETAILS OF THE SURGICAL PROCEDURE The patient was brought to the operating room and after the induction of general anesthesia, endotracheal intubation was performed. A Sams catheter and bilateral JOSE EDUARDO hose and sequential compression devices were placed and kept throughout the procedure. The patient was positioned prone on the Emil table over gel rods. All pressure points were carefully padded with egg crate mattress. The eyes were tapped shut after ointment was applied by the anesthesiologist to prevent corneal abrasion. A Radha hugger was placed over the exposed lower body to maintain control of the core body temperature. The lumbar region was prepped and draped in the usual sterile fashion. The C-arms were brought to the field and simultaneous AP and lateral x-rays were obtained. The levels were carefully counted and the pedicles were marked over the skin. An entry point was selected 1 centimeter superior and 1 centimeter lateral to the pedicle of L1 and L3. Two small incisions were outlined on the skin and infiltrated with 1% lidocaine with epinephrine in 1:100 ,000 dilution. Initially, two small skin incisions were made with a #11 blade. Then, Jamshidi needles were carefully advanced to the entrance of the pedicle of L1 and L3, and then into the vertebral body under continuous fluoroscopic guidance. K-wires were placed inside the vertebral body of and the needles were carefully removed. A drill was used to create a trough into the vertebral body to insert a cannula. Once the cannula was located through the pedicle, the drill was removed and bilateral balloons were inserted into the L1 and L3 vertebral body. A careful expansion of the balloon under continuous fluoroscopic guidance and manometric evaluation allowed expansion of the vertebral body. Then, the procedure was repeated in the same fashion at the next symptomatic level. The skin incisions were made with a #11 blade. Then, Jamshidi needles were carefully advanced to the entrance of the pedicle, and then into the vertebral body under continuous fluoroscopic guidance. The needles were advanced. The K-wire was advanced inside the vertebral body of L1 and L3 and the needles were carefully removed. A drill was used to create a trough into the vertebral body and to insert a cannula. Once the cannula was located through the pedicle, the drill was removed and bilateral balloons were inserted into the vertebral body for vertebral augmentation. A careful expansion of the balloon under continuous fluoroscopic guidance and manometric evaluation allowed expansion of the vertebral body. Then, the balloons were deflated and carefully removed and the voids created in the vertebral bodies were filled with bone cement. A very good expansion of the vertebral bodies was achieved without evidence of extravasation or cement or other complications. The cannulas were then removed. The incisions were closed using a single stitch at each incision. Dermabond was applied to the skin. At the end of the procedure, the sponge, needle, instrument counts correct. The estimated blood loss as minimal. No intraoperative complications occurred. The patient received prophylactic antibiotics. The patient was then extubated and transferred to the recovery room in stable condition. Bartolo Mukherjee MD Nov 03, 2017 09:13
--- NOTE | 2017-11-03 09:25 | RC ---
cc: KWAKU WALLER M.D., GEORGE VINAS,SILVANA DIAZ M.D., BRYAN M.D. DATE OF SERVICE: 11/01/2017 DATE OF : 1945. DIAGNOSIS Probable metastatic disease, esophageal primary versus second primary, Stage IV. CHIEF COMPLAINT Back pain. REASON FOR VISIT The patient is being evaluated for palliative treatment for pain control. HISTORY OF PRESENT ILLNESS This is a 72-year-old white male which states that in 2009 he was a diagnosed with esophageal carcinoma underwent surgical resection at [facility] and has been following with Dr. Roberts who has been performing dilations every six months. The patient says that he was suppose to have another dilation today as he has difficulty swallowing, has increased to the point that he can only swallow small amounts of food. When asked the patient states he has lost about 5 pounds of weight because of this but no more and he says when he is able to swallow he will gain the weight again. He states his back has been hurting since August and it has has been progressively increasing and getting worse. Due to the patient's pain, he came to emergency room was admitted and evaluated and noted to have multiple bony metastatic disease. The patient has been evaluated by Dr. Mukherjee and he is to have kyphoplasty with biopsy tomorrow. I have been consulted for recommendations for palliative radiation therapy. PAST MEDICAL HISTORY As above. Also history of bipolar disorder. IMPRESSION GERD Appendectomy. MEDICATIONS Medications include 1. Tylenol. 2. Oxycodone. 3. Morphine. 4. Albuterol. 5. Decadron 6. DuoNeb's. 7. Protonix. 8. Restoril. 9. Senokot-S. 10. Zanaflex. ALLERGIES NO KNOWN DRUG ALLERGIES. FAMILY HISTORY History of severe carcinoma family. SOCIAL HISTORY The patient smoked cigarettes, quit a long time ago. EtOH intake socially. REVIEW OF SYSTEMS Review of systems, constitutional the patient has lost about five pounds weight in the last month. ALLERGIC He has not had allergic reaction recently. EYES: Wears glasses. ENT: Difficulty swallowing was also have dilation today. NECK: Denies any masses or pain. INTEGUMENTARY: Denies any itching rash. CARDIOVASCULAR SYSTEM: Unremarkable denies any chest pain or symptoms of myocardial infarction. RESPIRATORY: Unremarkable. Denies any cough. No wheezing, hemoptysis. GASTROINTESTINAL: Unremarkable. Denies any rectal bleeding. GENITOURINARY: Unremarkable. MUSCULOSKELETAL: The patient admits to lower back pain which was progressively worse to the point that he was not able to walk due to the pain. He also has pain in his sternum when he breathes. NEUROLOGICAL: The patient denies any neurological deficits, he has a little decrease in cognitive functions. No Motor function deficits, no incontinence. No decrease in sensory perception. PSYCHIATRIC: Unremarkable. ALLERGIC: Unremarkable. HEMATOLOGIC: Hematologic unremarkable. PHYSICAL EXAMINATION IN GENERAL: The patient is alert and oriented x3, resting comfortably, he says his pain is under control at present time, as long as he does not move he has no pain. VITAL SIGNS: Temperature 97.9, pulse 50, respiratory 17, blood pressure 118/56, pulse ox 94, 94% on nasal oxygen. LUNGS: Lungs were clear to auscultation with upper ventilatory respiratory effort is equal and bilateral. HEART: Heart was regular rate and rhythm with no murmurs. NECK: Palpation of the neck and bilateral supraclavicular areas are free with no lymph nodes. CHEST: Palpation of chest area reveals pain in sternal area. ABDOMEN: Palpation abdominal cavity reveals hepatosplenomegaly. No pain elicited. No periumbilical lymph nodes noted. EXTREMITIES: No lower extremity edema detected. NEUROLOGIC: No neurological detected. Cognitive function preserved motor function preserved. Sensory functions are preserved. SKIN: Without rash. BACK: The joints and muscles, with pain in lower back as well as superior thoracic area. No other positive findings. PATHOLOGIC: Surgical pathology pending history of previous esophageal carcinoma. RADIOLOGY Cervical spine in 10/31/2017. IMPRESSION: Wide spread prepped fashion and marrow replacing characteristic of bony metastatic disease without evidence of focal pathological fracture or soft tissue extension into the spinal canal. Metastatic disease and does not enhance significantly postcontrast Os-Willi stenosis. MRI of the lumbar spine 10/31/2017. IMPRESSION Widespread metastatic disease with mild compression fractures of L1-L3. That disease at T12 posterior descending extending slightly into the posterior canal at the thoracolumbar junction. At L3 left sided patent functions rales metastatic disease extends slightly into the left lateral recess. Overall no significant central canal stenosis. There is also Sunday disease involving the upper sacrum and pelvis. T-spine MRI 10/31/2017; Impression widespread metastatic bony metastatic disease to the thoracic spine. Metastatic disease to the posterior elements of T3 and T12 on the left side, results in mild compression of the left posterior lateral, thoracic and now without significant compression, no pathological fracture. Abdomen/pelvis CT 10/30/2017 reviewed. ASSESSMENT 72-year white male with the possible diagnosis of metastatic disease from esophageal carcinoma or a second primary. The patient being evaluated for palliative radiotherapy treatment options. DISCUSSION AND PLAN I had an extensive discussion with the patient In regards to his present condition. I have discussed this case today with Dr. Waller. I have read Dr. Mukherjee note and I agree with the recommendations of kyphoplasty and biopsy to prove malignancy and type of malignancy. I advised the patient that after Dr. Mukherjee procedure, I would like to treat his T 12, 1 and L3 areas as well as T3, since there is a little bit of canal pressure with no stenosis or cord compromise or edema. I advised the patient of the merits of the radiation therapy to control pain, to prevent a pathological fracture and prevent neurological damage. I discussed the side effects, complications of treatment include but due to weakness and fatigue, due to cancer, necrosis skin, difficulty in swallowing, lung damage, lung fibrosis, lung pneumonitis, heart damage, bowel damage, kidney damage, nerve damage and bone damage. After thorough discussion the patient wanted to move forward with treatments when feasible. I left one of my business cards. I will try to simulate the patient on Sunday or Sunday so we can move forward with radiation therapy as soon as possible. The patient advised if I could be of any further assistance to please let me know otherwise we will proceed as above. Silvana Saxena MD Radiation Oncologist RADHA MOTTA/michael /4:59 PM /8:02 AM JOSE
[2017-11-03] MEDS: PANTOPRAZOLE SOD 40 MG DELAYED RELEASE TAB PO SCH (09:31)
[2017-11-03] MEDS: DOCUSATE SODIUM 100 MG CAP PO SCH (09:31)
[2017-11-03] MEDS: DOCUSATE SODIUM 50 MG/SENNA 8.6 MG TAB PO SCH ×2 (09:32→21:41)
--- NOTE | 2017-11-03 09:57 | HHI.PR ---
Subjective Remarks F/u lumbar compression. Improved pain 2-3/10 worse with activity no numbness or incontinence dw RN Objective Vitals Vital Signs Date Time Temp Pulse Resp B/P (MAP) Pulse Ox O2 Delivery O2 Flow Rate FiO2 11/03/17 09:21 96 Nasal Cannula 2.00 11/03/17 08:00 97.2 54 18 158/80 (106) 96 11/03/17 04:00 97.9 55 18 147/72 (97) 98 11/03/17 00:00 97.4 61 17 132/69 (90) 100 11/02/17 21:36 66 11/02/17 20:46 94 Nasal Cannula 2.00 11/02/17 20:07 Nasal Cannula 2.00 11/02/17 20:00 97.4 61 17 132/69 (90) 100 11/02/17 19:35 Nasal Cannula 2.00 11/02/17 19:00 62 20 150/74 (99) 94 Nasal Cannula 2 11/02/17 18:30 64 18 157/80 (105) 97 Nasal Cannula 2 11/02/17 18:00 63 16 155/84 (107) 98 Nasal Cannula 2 11/02/17 17:55 60 17 147/74 98 11/02/17 17:30 59 15 162/74 (103) 95 Nasal Cannula 2 11/02/17 17:15 61 17 143/76 (98) 98 Nasal Cannula 3 11/02/17 17:00 70 19 139/67 (91) 99 Nasal Cannula 3 11/02/17 16:55 97.4 63 15 155/75 (101) 99 Nasal Cannula 3 11/02/17 14:35 97.6 58 18 131/74 92 11/02/17 12:32 Nasal Cannula 3 11/02/17 12:02 97.8 63 20 132/66 (88) 93 I/O 11/02/17 11/02/17 11/02/17 11/03/17 11/03/17 11/03/17 07:00 15:00 23:00 07:00 15:00 23:00 Intake Total 1460 ml 50 ml 3586 ml Output Total 250 ml 175 ml 350 ml Balance 1210 ml -125 ml 3236 ml Intake Oral 480 ml 220 ml IV Total 980 ml 600 ml FFP 2766 ml Blood Product IV Normal Saline Flush 50 ml Output Urine Total 250 ml 175 ml Estimated Blood Loss 50 ml Other 300 ml # Voids 1 Result Diagram: 10/31/1742410/31/17424 Objective Remarks GENERAL: WD WN in [place] SKIN: Warm and dry. CARDIOVASCULAR: Regular rate and rhythm RESPIRATORY: No accessory muscle use. Clear to auscultation. Breath sounds equal bilaterally. GASTROINTESTINAL: Abdomen soft, non-tender, nondistended. MUSCULOSKELETAL: Extremities without clubbing, cyanosis, or edema. No obvious deformities. NEUROLOGICAL: Awake and alert. No obvious cranial nerve deficits. Motor grossly within normal limits. Five out of 5 muscle strength in the arms and legs. Normal speech. Procedures L1 and L3 kyphoplasty A/P Problem List: (1) Intractable low back pain ICD Code: M54.5 - Low back pain Status: Acute (2) Pathologic lumbar vertebral fracture ICD Code: M84.48XA - Pathological fracture, other site, initial encounter for fracture Status: Acute Assessment and Plan Intractable back pain - Suspect metastatic disease to the spine causing compression fractures. - Status post L1 and L3 kyphoplasty. Follow up pathology - Continue pain management with Lortab, IV morphine and steroids. - Consulted medical oncology and radiation therapy Pericardial effusion - Asymptomatic at this time, likely secondary to metastatic disease. Consider echocardiogram Pleural effusion - Asymptomatic at this time, likely secondary to metastatic disease. May need thoracentesis if worsening hypoxia currently on 2 L GERD - home Protonix Insomnia - home temazepam and trazodone SB. Asymptomatic. EKG noted. Improved monitor on telemetry Emphysema. Denies shortness of breath. Albuterol Chronic ast elevation. Neg Hep profile in the past. SCDs. Consider pharmacological prophylaxis if okay with neurosurgery. Patient to be out of bed with brace Discharge Planning Discharge when cleared by neurosurgery, medical and radiation oncology Problem Qualifiers (1) Pathologic lumbar vertebral fracture: Qualified Codes: M84.48XA - Pathological fracture, other site, initial encounter for fracture Deondre Boyle MD Nov 03, 2017 09:57
[2017-11-03] MEDS ORDERED: HYDR-3583 PO (10:03)
[2017-11-03] MEDS ORDERED: TEMA30CA PO (10:03)
--- NOTE | 2017-11-03 10:03 | HHI.DCPOC ---
Discharge Care Plan Diagnosis: (1) Metastatic disease (2) Intractable low back pain Your Health Problems Are: Difficulty with ADL Exercise Tolerance Goals to Promote Your Health * To prevent worsening of your condition and complications * To maintain your health at the optimal level Directions to Meet Your Goals Take your medications as prescribed Follow your dietary instruction Follow activity as directed Keep your appointments as scheduled Take your immunizations and boosters as scheduled If your symptoms worsen call your PCP, if no PCP go to Urgent Care Center or Emergency Room Smoking is Dangerous to Your Health. Avoid second hand smoke Call the 24-hour hour crisis hotline for domestic abuse at Deondre Boyle MD Nov 03, 2017 10:03
[2017-11-03] MEDS ORDERED: DEXA4TAB PO (12:40)
--- NOTE | 2017-11-03 13:46 | HHI.NSPN ---
History Interval History Patient status post L1 and L3 kyphoplasty with complete relief of his preoperative pain. Exam Results Vital Signs Date Time Temp Pulse Resp B/P (MAP) Pulse Ox O2 Delivery O2 Flow Rate FiO2 11/03/17 12:00 96.6 68 18 123/62 (82) 93 11/03/17 09:21 Nasal Cannula 2.00 11/03/17 07:00 21 Physical Examination Neurological examination is intact with no motor or sensory deficit. Patient is wearing his TLSO and has been ambulating without problems. Medical Decision Making Impression and Plan Status post L1, L3 kyphoplasty for pathologic compression fracture. Plan: Patient cleared for discharge from neurosurgical viewpoint. He may follow up with Dr. Mukherjee on an outpatient basis. Parvez Bucio MD Nov 03, 2017 13:46
--- NOTE | 2017-11-03 15:01 | HHI.FF ---
Face to Face Verification Diagnosis: (1) Pathologic lumbar vertebral fracture (2) Intractable low back pain Physical Therapy Order: Evaluate and Treat, Improve ambulation, Strength and gait training Home Health Nursing Order: Medical education Signs/symptoms of disease process Oxygen administration education Medication education-adverse effect Wound care and dressing changes Nursing assessment with vital signs I have seen patient Glen Raphael on 11/03/17. My clinical findings support the need for the requested home health care services because: Patient has SOB Deconditioned w/ increased weakness I certify that my clinical findings support that this patient is homebound because: Need for psychosocial assistance Deondre Boyle MD Nov 03, 2017 15:01
[2017-11-03] MEDS ORDERED: IPRA17I INH (15:04)
[2017-11-03] MEDS ORDERED: VENTAER INH (15:04)
[2017-11-03] MEDS ORDERED: OXYGENDME NAS.CANULA (15:06)
--- NOTE | 2017-11-03 16:22 | RADRPT ---
EXAM DATE/TIME: 11/03/2017 16:08 [facility] COMPARISON: CT THORAX W CONTRAST, October 30, 2017, 16:34. CHEST SINGLE AP, October 30, 2017, 17:25. INDICATIONS : Hypoxia. MEDICAL HISTORY : Chronic obstructive pulmonary disease. Carcinoma, esophageal SURGICAL HISTORY : L1 and L3 kyphoplastyAppendectomy. Esophageal ca surgery. ENCOUNTER: Initial ACUITY: 1 day PAIN SCORE: 3/10 LOCATION: Bilateral chest FINDINGS: There are diffuse bibasilar predominant patchy areas of parenchymal consolidation of both lungs, most ly new. There is small, bilateral pleural effusions have also developed. No pneumothorax. Surgical changes of esophagectomy and gastric pull up again noted. Mild cardiomegaly is unchanged. CONCLUSION: Interval development of patchy airspace disease and small effusions of both lungs. Andi Sethi MD on November 03, 2017 at 16:17 Board Certified Radiologist. This report was verified electronically.
[2017-11-03] MEDS: DEXAMETHASONE 4 MG TAB PO SCH (17:14)
[2017-11-03] MEDS ORDERED: AZITHROMYCIN 250 MG TAB PO ONE (18:30)
[2017-11-03] MEDS: CHLORHEXIDINE GLUCONATE 4% SOLN 120 ML BTL TOP SCH (21:00)
[2017-11-03] MEDS: traZODone HCL 100 MG TAB PO SCH (21:40)
[2017-11-04] MEDS: DEXAMETHASONE 4 MG TAB PO SCH ×3 (00:06→11:51)
[2017-11-04] MEDS: CHLORHEXIDINE GLUCONATE 2 % 1 PACK (2 CLOTHS)(taper/protocol) TOPICAL SCH (04:00)
[2017-11-04 04:59] VITALS: BP 158/69; PULSE 82; RESP 18; TEMP 96.8; O2SAT 96
[2017-11-04 08:00] VITALS: BP 155/70; PULSE 57; RESP 18; TEMP 97.9; O2SAT 97
[2017-11-04] MEDS: RESP: ACETYLCYSTEINE 10% 30 ML NEB NEB SCH (08:00)
[2017-11-04] MEDS ORDERED: AZIT250T3 PO (08:12)
[2017-11-04] MEDS: DOCUSATE SODIUM 50 MG/SENNA 8.6 MG TAB PO SCH (08:25)
[2017-11-04] MEDS: SODIUM CHLORIDE 0.9% FLUSH 10 ML FLUSH IV FLUSH SCH (08:25)
[2017-11-04] MEDS: PANTOPRAZOLE SOD 40 MG DELAYED RELEASE TAB PO SCH (08:25)
[2017-11-04] MEDS: RESP: ALBUTEROL 2.5 MG/IPRATROPIUM 0.5 MG NEB (SCH) NEB ×2 (08:39→12:19)
[2017-11-04 08:45] VITALS: O2SAT 93
[2017-11-04] MEDS ORDERED: PERI PO (09:16)
[2017-11-04] MEDS ORDERED: CEFU1TAB20 PO (09:17)
--- NOTE | 2017-11-04 09:23 | HHI.PR ---
Subjective Remarks Follow-up hypoxia. Currently on 2 L denies shortness of breath and productive cough with greenish phlegm yesterday today slightly yellowish. No fever or chills. Still no BM denies nausea and abdominal pain. Tolerating diet. Discussed with RN Objective Vitals Vital Signs Date Time Temp Pulse Resp B/P (MAP) Pulse Ox O2 Delivery O2 Flow Rate FiO2 11/04/17 08:45 93 Nasal Cannula 2.00 11/04/17 08:00 97.9 57 18 155/70 (98) 97 11/04/17 05:30 Nasal Cannula 2.00 21 11/04/17 04:59 96.8 82 18 158/69 (98) 96 11/03/17 23:06 96.4 76 18 133/61 (85) 96 11/03/17 20:32 95 Nasal Cannula 2.00 11/03/17 19:08 96.4 80 18 117/58 (77) 96 11/03/17 18:15 18 11/03/17 16:00 96.5 55 18 125/63 (83) 94 11/03/17 12:00 96.6 68 18 123/62 (82) 93 11/03/17 09:21 96 Nasal Cannula 2.00 I/O 11/03/17 11/03/17 11/03/17 11/04/17 11/04/17 11/04/17 07:00 15:00 23:00 07:00 15:00 23:00 Intake Total 600 ml 840 ml Balance 600 ml 840 ml Intake Oral 600 ml 840 ml # Voids 4 4 # Bowel Movements 0 0 Result Diagram: 10/31/17 0425 10/31/17 0425 Imaging Last Impressions Chest X-Ray 11/03/17 0000 Signed Impressions: Service Date/Time: Friday, November 03, 2017 16:08 - CONCLUSION: Interval development of patchy airspace disease and small effusions of both lungs. Andi Sethi MD Lumbar Spine X-Ray 11/02/17 0000 Signed Impressions: Service Date/Time: Thursday, November 02, 2017 15:15 - CONCLUSION: L1-L3 kyphoplasty as above. Kenny Mcclellan MD FACR Thoracic Spine MRI 10/31/17 0000 Signed Impressions: Service Date/Time: Tuesday, October 31, 2017 10:02 - CONCLUSION: 1. Widespread bony metastatic disease in the thoracic spine. Metastatic disease to the posterior elements of T3 and T12 on the left side results in mild impression on the left posterior lateral thoracic canal without significant cord compression. No pathologic fracture. Davey Prince MD Lumbar Spine MRI 10/31/17 0000 Signed Impressions: Service Date/Time: Tuesday, October 31, 2017 10:02 - CONCLUSION: 1. Widespread bony metastatic disease with mild compression fractures of L1 and L3. 2. Metastatic disease at T12 posteriorly extending slightly into the posterior lateral canal at the thoracolumbar junction. At L3 left-sided pedicle and transverse process metastatic disease extends slightly into the left lateral recess. Overall there is no significant central canal stenosis. 3. There is also bony metastatic disease involving the upper sacrum and pelvis. Davey Prince MD Cervical Spine MRI 10/31/17 0000 Signed Impressions: Service Date/Time: Tuesday, October 31, 2017 10:02 - CONCLUSION: 1. Widespread patchy marrow replacement characteristic of bony metastatic disease without evidence of focal pathologic fracture or soft tissue extension into the spinal canal. The metastatic disease does not enhance significantly post contrast. No canal stenosis. Davey Prince MD Chest CT 10/30/17 1539 Signed Impressions: Service Date/Time: Monday, October 30, 2017 16:34 - CONCLUSION: 1. Osseous metastatic disease. This includes an expansile lesion involving what appears to be the left T3 lamina with mass effect on the left side of the thecal sac. 2. Small to moderate sized pericardial effusion. 3. Status post esophagectomy with gastric pull-through procedure. There is no visualized mass or adenopathy. 4. Underlying emphysema and mild scarring. 5. Small left pleural effusion. 6. Low attenuation lesion in the anterior left lobe of liver which is a nonspecific finding. Please see abdomen CT for further details. Chente Stone MD Lumbar Spine CT 10/30/17 0000 Signed Impressions: Service Date/Time: Monday, October 30, 2017 16:34 - CONCLUSION: 1. Diffuse osseous metastatic disease with pathologic compression fractures at L1 and L3 vertebral bodies. There is limited posterior cortical destruction at L3 without gross epidural involvement. 2. Soft tissue mass in the left T12 lamina appears to extend into the posterior epidural space. 3. Soft tissue mass in the right sacrum involves the right S1 neural foramina. 4. Consider MRI examination if patient has radicular symptoms for better evaluation of epidural involvement. 5. Patient may be a candidate for RF ablation and cement augmentation at L1 and L3 vertebral bodies as long as patient does not have any focal neurologic symptoms at these levels. If so, consider neurosurgical consultation. Genaro Page MD Abdomen/Pelvis CT 10/30/17 0000 Signed Impressions: Service Date/Time: Monday, October 30, 2017 16:34 - CONCLUSION: 1. Osseous metastatic disease. There is an expansile destructive lesion involving the left L3 transverse process process and pedicle. 2. Postsurgical changes status post esophagectomy and gastric pull-through procedure. 3. 1.2 cm low-attenuation lesion in the anterior left lobe of the liver which is nonspecific. The differential diagnosis includes both metastatic disease and benign lesions. 4. Small to moderate pericardial effusion again noted. 5. Small left pleural effusion again noted. Chente Stone MD Objective Remarks GENERAL: WD WN in [place] SKIN: Warm and dry. CARDIOVASCULAR: Regular rate and rhythm RESPIRATORY: No accessory muscle use. Mild expiratory wheezes right. Decreased Breath sounds equal bilaterally. GASTROINTESTINAL: Abdomen soft, non-tender, nondistended. MUSCULOSKELETAL: Extremities without clubbing, cyanosis, or edema. No obvious deformities. NEUROLOGICAL: Awake and alert. No obvious cranial nerve deficits. Motor grossly within normal limits. Five out of 5 muscle strength in the arms and legs. Normal speech. Procedures L1 and L3 kyphoplasty A/P Problem List: (1) Intractable low back pain ICD Code: M54.5 - Low back pain Status: Acute (2) Pathologic lumbar vertebral fracture ICD Code: M84.48XA - Pathological fracture, other site, initial encounter for fracture Status: Acute Assessment and Plan Intractable back pain - Suspect metastatic disease to the spine causing compression fractures. - Status post L1 and L3 kyphoplasty. Follow up pathology - Continue pain management with Lortab, IV morphine and steroids. - Consulted medical oncology and radiation therapy Pericardial effusion - Asymptomatic at this time, likely secondary to metastatic disease. Consider echocardiogram CAP with hypoxia hx COPD. B/l Pleural effusion too small for safe thoracentesis - Patient received cefazolin will start IV Rocephin and Zithromax check sputum culture. Continue nebulizations and steroids. Repeat chest x-ray in 6 weeks. Home oxygen arrangements. Patient to follow-up with Dr. esparza his co director GERD - home Protonix Insomnia - home temazepam and trazodone SB. Asymptomatic. EKG noted. Improved monitor on telemetry Chronic ast elevation. Neg Hep profile in the past. Constipation. Add lactulose SCDs. Consider pharmacological prophylaxis if okay with neurosurgery. Patient to be out of bed with brace Discharge Planning Stable for discharge after bowel movement Problem Qualifiers (1) Pathologic lumbar vertebral fracture: Qualified Codes: M84.48XA - Pathological fracture, other site, initial encounter for fracture Deondre Boyle MD Nov 04, 2017 09:23
--- NOTE | 2017-11-04 09:24 | HHI.DS ---
Discharge Summary Admission Date Oct 30, 2017 at 18:43 Discharge Date: Nov 04, 2017 Admitting Diagnosis metastatic disease, pathologic lumbar vertebral fractures (1) Intractable low back pain ICD Code: M54.5 - Low back pain Diagnosis: Principal Status: Acute (2) Pathologic lumbar vertebral fracture ICD Code: M84.48XA - Pathological fracture, other site, initial encounter for fracture Diagnosis: Principal Status: Acute Procedures L1 and L3 kyphoplasty Brief History - From Admission 72-year-old white male being admitted for compression fractures suspected secondary to metastatic disease. Patient was in his usual state of health until about 2 months ago when he began experiencing a substantial increase in his low back pain. He would go to his primary care doctor and undergo some medication treatments which provided little to no avail. He has noticed some increased urinary straining since then and also reports having decreased bowel movements which he attributes to the new pain medication that he was being prescribed. He does report having a decreased appetite and feeling weaker all over. He states that his back pain worsens with positioning and ambulation. Sometimes stooping forward helps. He denies any nausea vomiting or diarrhea but he does report having about 5 pound decrease over the last 2 months. He decided to come to the emergency department because he felt his symptoms are not getting any better with outpt treatment. ER doc d/w NICK who recommended MRI of entire spine for now. CT of spine showing suspicious mass at T 12 and compressions fractures at L1 and L3. CBC/BMP: 10/31/17 0425 10/31/17 0425 Significant Findings Laboratory Tests Test 11/01/17 11:46 11/03/17 16:04 Hemoglobin A1c 6.3 % (4.3-6.0) Arterial Blood pH 7.44 (7.380-7.420) Blood Gas Hemoglobin 10.4 G/DL (12.0-16.0) Imaging Last Impressions Chest X-Ray 11/03/17 0000 Signed Impressions: Service Date/Time: Friday, November 03, 2017 16:08 - CONCLUSION: Interval development of patchy airspace disease and small effusions of both lungs. Andi Sethi MD Lumbar Spine X-Ray 11/02/17 0000 Signed Impressions: Service Date/Time: Thursday, November 02, 2017 15:15 - CONCLUSION: L1-L3 kyphoplasty as above. Kenny Mcclellan MD FACR Thoracic Spine MRI 10/31/17 0000 Signed Impressions: Service Date/Time: Tuesday, October 31, 2017 10:02 - CONCLUSION: 1. Widespread bony metastatic disease in the thoracic spine. Metastatic disease to the posterior elements of T3 and T12 on the left side results in mild impression on the left posterior lateral thoracic canal without significant cord compression. No pathologic fracture. Davey Prince MD Lumbar Spine MRI 10/31/17 0000 Signed Impressions: Service Date/Time: Tuesday, October 31, 2017 10:02 - CONCLUSION: 1. Widespread bony metastatic disease with mild compression fractures of L1 and L3. 2. Metastatic disease at T12 posteriorly extending slightly into the posterior lateral canal at the thoracolumbar junction. At L3 left-sided pedicle and transverse process metastatic disease extends slightly into the left lateral recess. Overall there is no significant central canal stenosis. 3. There is also bony metastatic disease involving the upper sacrum and pelvis. Davey Prince MD Cervical Spine MRI 10/31/17 0000 Signed Impressions: Service Date/Time: Tuesday, October 31, 2017 10:02 - CONCLUSION: 1. Widespread patchy marrow replacement characteristic of bony metastatic disease without evidence of focal pathologic fracture or soft tissue extension into the spinal canal. The metastatic disease does not enhance significantly post contrast. No canal stenosis. Davey Prince MD Chest CT 10/30/17 1539 Signed Impressions: Service Date/Time: Monday, October 30, 2017 16:34 - CONCLUSION: 1. Osseous metastatic disease. This includes an expansile lesion involving what appears to be the left T3 lamina with mass effect on the left side of the thecal sac. 2. Small to moderate sized pericardial effusion. 3. Status post esophagectomy with gastric pull-through procedure. There is no visualized mass or adenopathy. 4. Underlying emphysema and mild scarring. 5. Small left pleural effusion. 6. Low attenuation lesion in the anterior left lobe of liver which is a nonspecific finding. Please see abdomen CT for further details. Chente Stone MD Lumbar Spine CT 10/30/17 0000 Signed Impressions: Service Date/Time: Monday, October 30, 2017 16:34 - CONCLUSION: 1. Diffuse osseous metastatic disease with pathologic compression fractures at L1 and L3 vertebral bodies. There is limited posterior cortical destruction at L3 without gross epidural involvement. 2. Soft tissue mass in the left T12 lamina appears to extend into the posterior epidural space. 3. Soft tissue mass in the right sacrum involves the right S1 neural foramina. 4. Consider MRI examination if patient has radicular symptoms for better evaluation of epidural involvement. 5. Patient may be a candidate for RF ablation and cement augmentation at L1 and L3 vertebral bodies as long as patient does not have any focal neurologic symptoms at these levels. If so, consider neurosurgical consultation. Genaro Page MD Abdomen/Pelvis CT 10/30/17 0000 Signed Impressions: Service Date/Time: Monday, October 30, 2017 16:34 - CONCLUSION: 1. Osseous metastatic disease. There is an expansile destructive lesion involving the left L3 transverse process process and pedicle. 2. Postsurgical changes status post esophagectomy and gastric pull-through procedure. 3. 1.2 cm low-attenuation lesion in the anterior left lobe of the liver which is nonspecific. The differential diagnosis includes both metastatic disease and benign lesions. 4. Small to moderate pericardial effusion again noted. 5. Small left pleural effusion again noted. Chente Stone MD PE at Discharge GENERAL: WD WN in [place] SKIN: Warm and dry. CARDIOVASCULAR: Regular rate and rhythm RESPIRATORY: No accessory muscle use. Mild expiratory wheezes right. Decreased Breath sounds equal bilaterally. GASTROINTESTINAL: Abdomen soft, non-tender, nondistended. MUSCULOSKELETAL: Extremities without clubbing, cyanosis, or edema. No obvious deformities. NEUROLOGICAL: Awake and alert. No obvious cranial nerve deficits. Motor grossly within normal limits. Five out of 5 muscle strength in the arms and legs. Normal speech. Hospital Course Intractable back pain - Suspect metastatic disease to the spine causing compression fractures. - Status post L1 and L3 kyphoplasty. Follow up pathology - Continue pain management with Lortab, IV morphine and steroids. - Consulted medical oncology and radiation therapy Pericardial effusion - Asymptomatic at this time, likely secondary to metastatic disease. Consider echocardiogram CAP with hypoxia hx COPD. B/l Pleural effusion too small for safe thoracentesis. No flu sxs - Patient received cefazolin will start IV Rocephin and Zithromax check sputum culture. Continue nebulizations and steroids. Repeat chest x-ray in 6 weeks. Home oxygen arrangements. Patient to follow-up with Dr. esparza his recreational sports director GERD - home Protonix Insomnia - home temazepam and trazodone SB. Asymptomatic. EKG noted. Improved monitor on telemetry Chronic ast elevation. Neg Hep profile in the past. Constipation. Add lactulose SCDs. Consider pharmacological prophylaxis if okay with neurosurgery. Patient to be out of bed with brace Pt Condition on Discharge: Stable Discharge Disposition: Discharge Home Discharge Time: > 30 minutes Discharge Instructions DIET: Follow Instructions for: Heart Healthy Diet Activities you can perform: Regular-No Restrictions Activities to Avoid: Driving Follow up Referrals: Neurosurgery - 1 Week Oncology - [address] Mango massey Oncology/Hematology with Ceila Waller MD PCP Follow-up - 2-3 Days New Orders: X-RAY CHEST PA & LAT - 6 Weeks New Medications: Albuterol 18 GM Inh (Ventolin Hfa 18 GM Inh) 90 Mcg/Act Aer 2 PUFF INH Q4H PRN for SHORTNESS OF BREATH, #1 INHALER 0 Refills Cefuroxime (Cefuroxime) 500 Mg Tab 500 MG PO BID for Infection, #26 TAB 0 Refills Dexamethasone (Dexamethasone) 4 Mg Tab 4 MG PO Q6HR for Control Inflammation, #120 TAB 0 Refills Ipratropium HFA 12.9 GM Inh (Atrovent HFA 12.9 GM Inh) 17 Mcg/Actuation Aer 2 PUFF INH Q6HR for Breathing Treatment, #1 INHALER 0 Refills Oxygen (O2) (Oxygen (O2)) Device LITER CELIA.CANULA CONTINUOUS for Prevent Hypoxemia, #2 Oxygen Concentrator Portable Gaseous 2 L/min via Nasal Canula Continuous For 99 months Azithromycin (Azithromycin) 250 Mg Tab 250 MG PO DAILY@1800 for Infection, #2 TAB Hydrocodone/Acetaminophen (Hydrocodone-Acetamin 10-325 mg) 10 Mg-325 Mg Tablet 1 TAB PO Q6H PRN for PAIN SCALE 1 TO 5, #12 TAB Sennosides-Docusate Sodium (Gnp Senna Plus 8.6-50 mg) 8.6 Mg-50 Mg Tab 1 TAB PO BID for Constipation, #60 TAB Continued Medications: Pantoprazole (Protonix) 40 Mg Tab 40 MG PO DAILY for Reflux, #30 TAB 0 Refills Temazepam (Temazepam) 30 Mg Cap 30 MG PO HS PRN for INSOMNIA, #303 CAP 0 Refills (This prescription has been renewed) Tizanidine (Tizanidine) 4 Mg Cap 4 MG PO HS for Muscle Spasm, CAP 0 Refills Trazodone (Trazodone) 100 Mg Tablet 200 MG PO HS for Control Depression, #30 TAB 0 Refills Discontinued Medications: Tramadol (Tramadol) 50 Mg Tab 50 MG PO Q6H PRN for PAIN, TAB 0 Refills Deondre Boyle MD Nov 04, 2017 09:24
[2017-11-04 09:37] VITALS: RESP 17
[2017-11-04] MEDS ORDERED: cefTRIAXone INJ 2,000 MG in SODIUM CHLORIDE 0.9% INJ 100 ML IV ONE (10:00)
[2017-11-04] MEDS: MAGNESIUM HYDROXIDE SUSP 30 ML CUP PO PRN (10:19)
[2017-11-04] MEDS ORDERED: LACTULOSE SYRUP 20 GM/30 ML CUP PO SCH (13:00)
[2017-11-04] MEDS ORDERED: AZITHROMYCIN 250 MG TAB PO SCH (18:00)
== END 2017-11-04 13:46 | disposition home health service (06) | DRG 515 ==
LOC: PHED 14:36 → PHEDA 18:42 → OBSVTOIN 18:42 → PHEDA 18:43 → UNDOADMOB 18:43 → INTOOBSV 18:43 → PHICU 22:14 → PHEDA 22:14 → HIMW 10-31 18:16 → PHICU 10-31 18:16 → HIMW 11-01 21:53 → HCIN 11-01 21:53 → N06B 11-02 19:59 → UNDODISOB 11-04 13:46
PROVIDERS: ADMIT Internal Medicine; ATTEND Internal Medicine
PROC: 0QS03ZZ Reposition Lumbar Vertebra, Percutaneous Approach (ICD-10-PCS; 2017-11-02)
PROC: 0QU03JZ Supplement Lumbar Vertebra with Synthetic Substitute, Percutaneous Approach (ICD-10-PCS; 2017-11-02)
PROC: 0QU03JZ Supplement Lumbar Vertebra with Synthetic Substitute, Percutaneous Approach (ICD-10-PCS; 2017-11-02)
PROC: 30233K1 Transfusion of Nonautologous Frozen Plasma into Peripheral Vein, Percutaneous Approach (ICD-10-PCS; 2017-11-02)
PROC: 0QS03ZZ Reposition Lumbar Vertebra, Percutaneous Approach (ICD-10-PCS; principal; 2017-11-02 14:46)
DX: M84.58XA Pathological fracture in neoplastic disease, other specified site, initial encounter for fracture (principal); J18.9 Pneumonia, unspecified organism; J90 Pleural effusion, not elsewhere classified; C79.51 Secondary malignant neoplasm of bone; I31.3 Pericardial effusion (noninflammatory); R00.1 Bradycardia, unspecified; C80.1 Malignant (primary) neoplasm, unspecified; K21.9 Gastro-esophageal reflux disease without esophagitis; G47.00 Insomnia, unspecified; R63.4 Abnormal weight loss; G89.29 Other chronic pain; J43.9 Emphysema, unspecified; F31.9 Bipolar disorder, unspecified; R39.16 Straining to void; R09.02 Hypoxemia; K59.00 Constipation, unspecified; Z87.891 Personal history of nicotine dependence; Z85.01 Personal history of malignant neoplasm of esophagus; Z80.0 Family history of malignant neoplasm of digestive organs
CPT/HCPCS: 36430; 36600; 71045; 71046; 71260; 72100; 72132; 72156; 72157; 72158; 74177; 80048; 80053; 81001; 82378; 82805; 83036; 83735; 84075; 84153; 85025; 85610; 85730; 86927; 87070; 87205; 87641; 88307; 88311; 88341; 88342; 93005; 94150; 94618; 94640; 94664; 96361; 96374; 99205; A9579; G8987-GP; G8988-GP; J0690; J0696; J1100; J2270; J2370; J3010; J3480; J7030; J7050; J7608; J8540; L0200; L0484; P9017; Q9967